=== PATIENT | female | born 1960 | race Caucasian/White ===

== ENCOUNTER → 2019-12-19 14:05 | Outpatient (BNVA) | payer OTHER, SELFPAY | PROVIDERS: Family Provider Family Medicine; PCP Family Medicine; Visit Provider Internal Medicine Rheumatology | DX: M06.4 Inflammatory polyarthropathy (principal); Z79.899 Other long term (current) drug therapy; M79.7 Fibromyalgia; M15.9 Polyosteoarthritis, unspecified; M47.26 Other spondylosis with radiculopathy, lumbar region | CPT/HCPCS: 36415; 80076; 82565; 84550; 85651; 86140 ==

== ENCOUNTER → 2019-12-19 14:18 | Outpatient (BNVA) | payer OTHER, SELFPAY | PROVIDERS: Family Provider Family Medicine; PCP Family Medicine; Visit Provider Internal Medicine Rheumatology | DX: M79.7 Fibromyalgia (principal); Z79.899 Other long term (current) drug therapy; M06.4 Inflammatory polyarthropathy | CPT/HCPCS: 85025 ==

== ENCOUNTER 2020-02-08 06:23 | Outpatient (CLI) | payer OTHER, SELFPAY ==
--- NOTE | 2020-02-08 06:25 | US_ITS ---
WS: [id number] ULTRASOUND ABDOMEN CLINICAL INFORMATION: ABD PAIN COMPARISON: None. FINDINGS: Liver Size: Enlarged Craniocaudal length: 18.2 cm. Echogenicity: Fatty infiltration Surface nodularity: None. Mass (size and location): None. Bile ducts Intrahepatic ducts: Normal. Common bile duct diameter: 0.5 cm. Gallbladder Normal. Gallstones: None. Gallbladder sludge: None. Gallbladder wall thickening: None. Pericholecystic fluid: None. Sonographic Cox sign: Absent. Pancreas Echogenic Right kidney: Normal. Hydronephrosis: None. Size: 10.9 cm x 4.1 cm x 4.0 cm Left kidney: Normal. Hydronephrosis: None. Size: 11.0 cm x 5.1 cm x 5.8 cm. Abdominal aorta and IVC Visualized portions are normal. Ascites: None. US/US abdomen complete* [id number] IMPRESSION: 1. Hepatomegaly with diffuse fatty infiltration. 2. Gallbladder is normal. 3. Normal common bile duct. 4. Echogenic pancreas likely due to fatty infiltration. This can also be seen with pancreatitis. Recommend correlation with pancreatic function studies. 5. No hydronephrosis in either kidney.
== END 2020-02-08 06:24 | disposition home or self-care (01) ==
LOC: RAD 06:24
PROVIDERS: PCP Family Medicine; Visit Provider Family Medicine
DX: R10.9 Unspecified abdominal pain (principal); K76.0 Fatty (change of) liver, not elsewhere classified
CPT/HCPCS: 76700

== ENCOUNTER → 2020-02-19 09:17 | Outpatient (BNVA) | payer OTHER, SELFPAY | PROVIDERS: PCP Family Medicine; Visit Provider Urology | DX: N39.46 Mixed incontinence (principal) | CPT/HCPCS: 81001 ==

== ENCOUNTER 2020-03-06 07:22 | Outpatient (CLI) | payer OTHER, SELFPAY ==
--- NOTE | 2020-03-06 07:35 | NM_ITS ---
WS: [id number] NM hepatobiliary w phar* [id number] REASON FOR EXAM: abdominal pain TECHNICAL: 7.8 mCi technetium 9 9 exam mebrofenin , ensure +8 ounces FINDINGS: After the injection of the mebrofenin the gallbladder visualizes at approximately 10 minute s. The patient was given ensure plus orally. Ejection fraction was normal 68% at 60 minutes. NM/NM hepatobiliary w phar* [id number] IMPRESSION: Normal appearance the gallbladder with normal ejection fraction.
== END 2020-03-06 07:23 | disposition home or self-care (01) ==
LOC: RAD 07:24
PROVIDERS: PCP Family Medicine; Visit Provider Family Medicine
DX: R10.9 Unspecified abdominal pain (principal)
CPT/HCPCS: 78227; A9537

== ENCOUNTER → 2020-03-25 09:09 | Outpatient (BNVA) | payer OTHER, SELFPAY | PROVIDERS: Family Provider Family Medicine; PCP Family Medicine; Visit Provider Internal Medicine Rheumatology | DX: Z79.899 Other long term (current) drug therapy (principal) | CPT/HCPCS: 36415; 80076; 82565; 84550; 85025; 85651; 86140 ==

== ENCOUNTER → 2020-04-01 10:57 | Outpatient (BNVA) | payer OTHER, SELFPAY | PROVIDERS: Family Provider Family Medicine; PCP Family Medicine; Visit Provider Internal Medicine Rheumatology | DX: M06.041 Rheumatoid arthritis without rheumatoid factor, right hand (principal); M06.042 Rheumatoid arthritis without rheumatoid factor, left hand; M76.61 Achilles tendinitis, right leg; M77.12 Lateral epicondylitis, left elbow; M77.02 Medial epicondylitis, left elbow; Z79.899 Other long term (current) drug therapy | CPT/HCPCS: 99214 ==

== ENCOUNTER 2020-04-07 12:48 | Outpatient (CLI) | payer OTHER, SELFPAY ==
--- NOTE | 2020-04-07 12:58 | XRR_ITS ---
PROCEDURE INFORMATION: Exam: XR Left Foot Complete Exam date and time: 04/07/2020 12:59 PM Age: 59 years old Clinical indication: Left; Patient HX: C/O bilat hand , foot, elbow pain x years; Additional info: Inflammatory arthritis TECHNIQUE: Imaging protocol: XR Left foot. Views: 3 or more views. COMPARISON: No relevant prior studies available. FINDINGS: Bones/joints: Mild great toe bunion deformity with metatarsus varus and hallux valgus. Mild great toe MTP primary osteoarthritis. Soft tissues: Ossification/calcification over the Achilles tendon insertion on the posterior calcaneus consistent with enthesopathy. XR/XR foot LT min 3V* [id number] IMPRESSION: 1. Mild great toe bunion deformity with metatarsus varus and hallux valgus. 2. Mild great toe MTP primary osteoarthritis.
--- NOTE | 2020-04-07 12:58 | XRR_ITS ---
PROCEDURE INFORMATION: Exam: XR Left Hand Exam date and time: 04/07/2020 12:59 PM Age: 59 years old Clinical indication: Left; Patient HX: C/O bilat hand pain x years; Additional info: Inflammatory arthritis TECHNIQUE: Imaging protocol: XR Left hand. Views: 3 or more views. COMPARISON: No relevant prior studies available. FINDINGS: Bones/joints: Normal. Soft tissues: Normal. XR/XR hand LT min 3V* [id number] IMPRESSION: No acute findings.
--- NOTE | 2020-04-07 12:58 | XRR_ITS ---
PROCEDURE INFORMATION: Exam: XR Right Hand Exam date and time: 04/07/2020 12:59 PM Age: 59 years old Clinical indication: Right; Patient HX: C/O bilat hand pain; Additional info: Inflammatory arthritis TECHNIQUE: Imaging protocol: XR Right hand. Views: 3 or more views. COMPARISON: No relevant prior studies available. 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 Soft tissues: Normal. 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
--- NOTE | 2020-04-07 12:58 | XRR_ITS ---
PROCEDURE INFORMATION: Exam: XR Left Elbow Exam date and time: 04/07/2020 12:59 PM Age: 59 years old Clinical indication: Left; Patient HX: C/O bilat elbow pain; Additional info: Inflammatory arthritis TECHNIQUE: Imaging protocol: XR Left elbow. Views: 1 or 2 views. COMPARISON: CR Elbow 2 views, LEFT [id number] 01/24/2018 4:20 PM FINDINGS: Bones/joints: Primary osteoarthritis in the medial elbow joint. Primary osteoarthritis in the anterior and posterior portions of the articulation between the ulna and humerus with osteophyte formation. Soft tissues: Normal. XR/XR elbow LT 2V [id number] IMPRESSION: 1. Primary osteoarthritis in the medial elbow joint. 2. Primary osteoarthritis in the anterior and posterior portions of the articulation between the ulna and humerus with osteophyte formation.
--- NOTE | 2020-04-07 12:58 | XRR_ITS ---
PROCEDURE INFORMATION: Exam: XR Right Elbow Exam date and time: 04/07/2020 12:59 PM Age: 59 years old Clinical indication: Right; Patient HX: C/O bilat elbow pain; Additional info: Inflammatory arthritis TECHNIQUE: Imaging protocol: XR Right elbow. Views: 1 or 2 views. COMPARISON: CR Elbow 2 views, RIGHT [id number] 01/24/2018 4:20 PM FINDINGS: Bones/joints: Primary osteoarthritis in the anterior and posterior portions of the articulation between the ulna and humerus. Soft tissues: Normal. XR/XR elbow RT 2V [id number] IMPRESSION: Primary osteoarthritis in the anterior and posterior portions of the articulation between the ulna and humerus.
--- NOTE | 2020-04-07 12:58 | XRR_ITS ---
PROCEDURE INFORMATION: Exam: XR Chest, 2 Views Exam date and time: 04/07/2020 12:59 PM Age: 59 years old Clinical indication: Other: Extremity pain; Patient HX: C/O bilat hand, foot, elbow pain x years; Additional info: Inflammatory arthritis TECHNIQUE: Imaging protocol: XR of the chest Views: 2 views. COMPARISON: No relevant prior studies available. FINDINGS: Lungs: Calcified right hilar nodes and/or mediastinal nodes and/or lung granulomas consistent with old granulomatous disease. Pleural space: Unremarkable. No pleural effusion. No pneumothorax. Heart/Mediastinum: Unremarkable. No cardiomegaly. Bones/joints: Levoscoliosis. Moderate thoracic spondylosis. [id number] right acromioclavicular arthropathy. XR/XR chest 2V* [id number] IMPRESSION: 1. Moderate thoracic spondylosis. 2. [id number] right acromioclavicular arthropathy.
--- NOTE | 2020-04-07 12:58 | XRR_ITS ---
PROCEDURE INFORMATION: Exam: XR Right Foot Complete Exam date and time: 04/07/2020 12:59 PM Age: 59 years old Clinical indication: Right; Patient HX: C/O bilat foot pain x years; Additional info: Inflammatory arthritis TECHNIQUE: Imaging protocol: XR Right foot. Views: 3 or more views. COMPARISON: No relevant prior studies available. FINDINGS: Bones/joints: Mild great toe bunion deformity with metatarsus varus and hallux valgus. Mild great toe MTP primary osteoarthritis. Soft tissues: Ossification/calcification over the Achilles tendon insertion on the posterior calcaneus consistent with enthesopathy. XR/XR foot RT min 3V* [id number] IMPRESSION: 1. Mild great toe bunion deformity with metatarsus varus and hallux valgus. 2. Mild great toe MTP primary osteoarthritis.
== END 2020-04-07 12:49 | disposition home or self-care (01) ==
PROVIDERS: Family Provider Family Medicine; PCP Family Medicine; Visit Provider Internal Medicine Rheumatology
DX: M47.814 Spondylosis without myelopathy or radiculopathy, thoracic region (principal); M19.022 Primary osteoarthritis, left elbow; M19.021 Primary osteoarthritis, right elbow; M21.611 Bunion of right foot; M21.171 Varus deformity, not elsewhere classified, right ankle; M20.12 Hallux valgus (acquired), left foot; M20.11 Hallux valgus (acquired), right foot; M21.612 Bunion of left foot; M19.072 Primary osteoarthritis, left ankle and foot; M19.071 Primary osteoarthritis, right ankle and foot; M19.041 Primary osteoarthritis, right hand
CPT/HCPCS: 71046; 73070; 73130; 73630

== ENCOUNTER 2020-04-17 07:22 | Day surgery (SDC) | payer OTHER, SELFPAY ==
[2020-04-16 10:24] VITALS: BMI 35.7
[2020-04-17 07:39] VITALS: BP 154/93; PULSE 103; RESP 18; TEMP 36.8; O2SAT 100
--- NOTE | 2020-04-17 07:47 | ANES.PREANE2 ---
Pre-Anesthetic Assessment Pre-Anesthetic Assessment: Height/Weight: Height 1.52 m Weight 83.007 kg Temp Pulse Resp BP Pulse Ox 98.2 F 103 H 18 154/93 100 04/17/20 07:39 04/17/20 07:39 04/17/20 07:39 04/17/20 07:39 04/17/20 07:39 Preop Diagnosis: abd pain Proposed Procedure: Operation Date: 04/17/20 08:30 Proposed Procedures p EGD(Not Applicable) - Rigo Morrison MD s Colonoscopy(Not Applicable) - Rigo Morrison MD Was Beta María taken within 24 hours: N/A Last intake: Intake Last Liquid Date 04/16/20 Last Liquid Time 21:00 Last Solid Date 04/15/20 Social: Social History: No alcohol and No tobacco Exam: Pre-Anes Outpt Exam: alert, oriented x 3, clear to auscultation bilaterally and regular rate & rhythm Airway: Submandibular: WNL Cervical ROM: WNL MP: 3 (small mouth) Dentition: Full History/ROS: No significant history except as noted Pulmonary: Pulmonary: Sleep apnea and SOB Comments: recent sinusitis (completed abx) CV/HEM: CV/HEM: HTN : : None reported Hepatic: Hepatic: None reported GI: GI: GERD Metabolic: Metabolic: Morbid obesity Musc/skel: Musc/skel: Fibromyalgia and RA (prednisone) Comments: gout Neuropsych: Neuropsych: Anxiety Anesthetic Plan: ASA status: 3 Anesthesia: Anesthesia Evaluation Risk of > 500 ml blood loss (7ml/kg in children): No PFSH Anesthesia PFSH: Medical History (Updated 04/01/20 @ 19:24 by Ben Gates MD) Achilles tendinitis Fibromyalgia Gout High risk medication use Hypertension Immunization counseling Inflammatory polyarthritis Lateral epicondylitis, left elbow Medial epicondylitis of left elbow Mixed stress and urge urinary incontinence Osteoarthritis Seronegative rheumatoid arthritis of both hands Surgical History H/O breast surgery H/O dilation and curettage History of carpal tunnel surgery Family History Other Heart attack Hypertension Rheumatoid arthritis Systemic lupus erythematosus, unspecified Denies family history of Diabetes Stroke Social History Smoking and tobacco status: never smoked Alcohol intake: never History of recent travel: No Data Anesthesia Cardiac Studies: No Data to Display
[2020-04-17] MEDS: sodium chloride 0.9% 1,000 ML 30 ML IV (08:03)
--- NOTE | 2020-04-17 08:31 | W.PM.OPSUD ---
Surgery/Procedure H&P Update DATE OF PROCEDURE: April 17, 2020 DATE H&P PERFORMED: 03/25/20 H&P UPDATE INFORMATION: No changes to prior documentation PREOP DIAGNOSIS: Family history of polyps, dysphagia, GERD, heartburn PLANNED PROCEDURE: Operation Date: 04/17/20 08:30 Proposed Procedures p EGD(Not Applicable) - Rigo Morrison MD s Colonoscopy(Not Applicable) - Rigo Morrison MD
[2020-04-17 09:14] VITALS: BP 107/53; PULSE 92; RESP 18; TEMP 37.2; O2SAT 100
[2020-04-18 05:42] LABS: H. Pylori / CLO Test Negative
== END 2020-04-17 09:33 | disposition home or self-care (01) ==
PROVIDERS: PCP Family Medicine; Visit Provider Surgery
PROC: 0DJ08ZZ Inspection of Upper Intestinal Tract, Via Natural or Artificial Opening Endoscopic (ICD-10-PCS; CPT 43235; principal; 2020-04-17 08:30)
PROC: 0DJD8ZZ Inspection of Lower Intestinal Tract, Via Natural or Artificial Opening Endoscopic (ICD-10-PCS; CPT 45378; 2020-04-17 08:30)
DX: Z12.11 Encounter for screening for malignant neoplasm of colon (principal); Z83.71 Family history of colonic polyps; R13.10 Dysphagia, unspecified; K21.9 Gastro-esophageal reflux disease without esophagitis; R12 Heartburn; K57.30 Diverticulosis of large intestine without perforation or abscess without bleeding; K64.8 Other hemorrhoids; K44.9 Diaphragmatic hernia without obstruction or gangrene; K29.70 Gastritis, unspecified, without bleeding; I10 Essential (primary) hypertension; E66.01 Morbid (severe) obesity due to excess calories; Z68.35 Body mass index [BMI] 35.0-35.9, adult; M79.7 Fibromyalgia; M19.90 Unspecified osteoarthritis, unspecified site; M06.042 Rheumatoid arthritis without rheumatoid factor, left hand; M06.041 Rheumatoid arthritis without rheumatoid factor, right hand; F41.9 Anxiety disorder, unspecified; Z79.52 Long term (current) use of systemic steroids
CPT/HCPCS: 12345; 43239; 45378; 87077; J2704; J7030

== ENCOUNTER → 2020-04-30 10:49 | Outpatient (BNVA) | payer OTHER, SELFPAY | PROVIDERS: PCP Family Medicine; Visit Provider Internal Medicine Rheumatology | DX: M06.4 Inflammatory polyarthropathy (principal); Z79.899 Other long term (current) drug therapy; Z11.1 Encounter for screening for respiratory tuberculosis | CPT/HCPCS: 36415; 80076; 82565; 85025; 85651; 86140; 86480; 86812 ==

== ENCOUNTER 2020-07-16 09:01 | Outpatient (CLI) | payer OTHER, SELFPAY ==
[2020-07-16 10:24] LABS: Basophils # 0.1 10^3/uL (0.0-0.1); Basophils % 0.6 %; Eosinophils # 0.2 10^3/uL (0.0-0.8); Hematocrit 39.1 % (37.0-47.0); Hemoglobin 12.5 g/dL (11.5-15.3); Lymphocytes % 25.4 %; Mean Corpuscular Hemoglobin 31.6 pg (28.0-34.0); Monocytes # 0.5 10^3/uL (0.2-0.9); Monocytes % 5.7 %; Neutrophils # 5.18 10^3/uL (1.8-7.7); Neutrophils % 65.8 %; Nucleated Red Blood Cells % 0 %; Platelet Count 298 10^3/cmm (130-400); Red Blood Count 3.95 10^6/uL (4.1-5.3); Red Cell Distribution Width 14.8 % (12.1-15.1); White Blood Count 7.9 10^3/uL (4.0-10.0)
[2020-07-16 10:44] LABS: Alanine Aminotransferase 17 U/L (0-33); Albumin Level 4.5 g/dL (3.5-5.2); Alkaline Phosphatase 101 IU/L (35-105); Aspartate Amino Transferase 16 U/L (0-32); C Reactive Protein 7.5 mg/L (0.0-4.9); Globulin 3.2 g/dL (1.3-4.6); Glomerular Filtration Rate 73.2 mL/min (90-130); Total Bilirubin 0.2 mg/dL (0.15-1.2); Total Protein 7.7 g/dL (6.6-8.7)
[2020-07-16 11:20] LABS: Erythrocyte Sedimentation Rate 44 mm/hr (0-15)
== END 2020-07-16 09:02 | disposition home or self-care (01) ==
LOC: LAB 09:03
PROVIDERS: PCP Family Medicine; Visit Provider Internal Medicine Rheumatology
DX: M06.041 Rheumatoid arthritis without rheumatoid factor, right hand (principal); M06.042 Rheumatoid arthritis without rheumatoid factor, left hand; M06.4 Inflammatory polyarthropathy; Z79.899 Other long term (current) drug therapy
CPT/HCPCS: 36415; 80076; 82565; 85025; 85651; 86140; 87086; 87635

== ENCOUNTER 2020-07-22 06:07 | Day surgery (SDC) | payer OTHER, SELFPAY ==
[2020-07-16 09:27] VITALS: BMI 35.7
--- NOTE | 2020-07-16 09:59 | ANES.PREANE2 ---
Pre-Anesthetic Assessment Pre-Anesthetic Assessment: Height/Weight: Height 1.52 m Weight 83.007 kg Preop Diagnosis: Family history of polyps, dysphagia, GERD, heartburn Proposed Procedure: Operation Date: 07/22/20 09:00 Proposed Procedures p Single Incision Suburethral Sling [id number] N39.46(Not Applicable) - Tc Penny MD s Cystoscopy(Not Applicable) - Tc Penny MD Familial anesthetic complications: None Social: Social History: No alcohol and No tobacco Exam: Pre-Anes Outpt Exam: alert, oriented x 3, clear to auscultation bilaterally and regular rate & rhythm Airway: Cervical ROM: WNL MP: 4 Dentition: Other (missing) Additional comments: large neck circumference and small mouth opening Pulmonary: Pulmonary: Sleep apnea (cpap) CV/HEM: CV/HEM: HTN GI: GI: GERD Metabolic: Metabolic: Morbid obesity Musc/skel: Musc/skel: RA (denies ligamentous laxity of neck) Comments: on methotrexate and prednisone - may require hydrocortisone as stress dose steroids Neuropsych: Neuropsych: Anxiety Anesthetic Plan: ASA status: 3 Anesthesia: General Risk of > 500 ml blood loss (7ml/kg in children): No PFSH Anesthesia PFSH: Medical History (Updated 06/30/20 @ 18:09 by Tc Penny MD) Achilles tendinitis Fibromyalgia Gout High risk medication use Hypertension Immunization counseling Inflammatory polyarthritis Lateral epicondylitis, left elbow Medial epicondylitis of left elbow Osteoarthritis Seronegative rheumatoid arthritis of both hands Surgical History (Updated 06/30/20 @ 17:44 by Tc Penny MD) H/O breast surgery (~12/2018) History of carpal tunnel surgery (11/15/13) Left. Performed by Dr. Diaz at [facility] [place] in [place], [place]. S/P bilateral breast reduction (~03/2018) Status post hysteroscopy (11/21/18) With D&C. DX: Postmenopausal bleeding. Performed by Dr. Penny at [facility] [place] in [place], [place]. Findings: First-degree uterine prolapse, first to second-degree cystocele. Family History (Updated 06/30/20 @ 17:48 by Tc Penny MD) Mother Hypertension CAD (coronary artery disease) Hyperlipidemia Breast cancer Uterine cancer Grandfather Diabetes Maternal Family/Other Diabetes Maternal aunt Family history of thyroid problem Maternal aunt Father Bone cancer Other Rheumatoid arthritis Systemic lupus erythematosus, unspecified Social History (Updated 06/30/20 @ 17:49 by Tc Penny MD) Smoking and tobacco status: never smoked Alcohol intake: never History of recent travel: No Data Anesthesia Cardiac Studies: No Data to Display
[2020-07-22] VITALS (8 sets, daily range): BP systolic 118–155; BP diastolic 68–86; PULSE 88–109; RESP 13–20; TEMP 36.1–37.4; O2SAT 92–100
[2020-07-22] MEDS: sodium chloride 0.9% 1,000 ML 30 ML IV (06:25)
[2020-07-22] MEDS: ketorolac 30 mg/mL INJ IVP (06:53)
[2020-07-22] MEDS: phenazopyridine 100 mg Tablet 200 MG PO (06:55)
[2020-07-22] MEDS: gabapentin 300 mg Capsule PO (06:55)
--- NOTE | 2020-07-22 06:55 | W.PM.OPSUD ---
Surgery/Procedure H&P Update DATE OF PROCEDURE: July 22, 2020 DATE H&P PERFORMED: 06/27/20 H&P UPDATE INFORMATION: I have reviewed H&P completed within last 30 days, I have examined patient prior to procedure, No changes to prior documentation and H&P is in [facility] EMR on date indicated PREOP DIAGNOSIS: Mixed urinary incontinence PLANNED PROCEDURE: Operation Date: 07/22/20 07:50 Proposed Procedures p Single Incision Suburethral Sling [id number] N39.46(Not Applicable) - Tc Penny MD s Cystoscopy(Not Applicable) - Tc Penny MD
[2020-07-22] MEDS: vasopressin 20 unit/mL INJ 4 UNIT INJECTION (09:07)
--- NOTE | 2020-07-22 09:07 | P.OP_ITS ---
Operative Report Date of procedure: July 22, 2020 Pre-op Diagnosis: Mixed urinary incontinence Post-op Diagnosis: Mixed urinary incontinence Procedure Done: Single incision suburethral sling, Cystoscopy Specimens removed/disposition: None Surgeon: Tc Penny Food Service Helper: None Anesthesia: General Estimated blood loss (mL): 20 IV fluids (mL): 800 Complications: None Findings: Small urethral orifice. Second-degree uterine prolapse with second- degree cystocele under anesthesia. Normal-appearing bladder with no masses noted. Brief History: Patient is a 59-year-old 2, para 2, postmenopausal female. She presented to the office with a several year history of leaking urine. She has had a mixture of stress and urgency incontinence. Originally urgency issues were more of a problem. She has been treated with oxybutynin for this. However, the stress component has now become more significant and she is wanting to proceed with surgical treatment for this. On exam, she had been found to have a urethrocele present. In the office, she had a first-degree uterine prolapse with a first-degree cystocele noted. As a result, single incision suburethral sling was discussed with her and she is presenting for that at this time. Procedure: Patient was taken to the operating room where general anesthesia was obtained. She was prepped and draped in usual sterile fashion dorsal supine position with legs in Vamsi style stirrups. Sequential compression boots have been placed prior to starting the case. Jimenez catheter was inserted and exam under anesthesia was performed. She was noted to have a second-degree uterine prolapse with second-degree cystocele under anesthesia. Jimenez catheter was attempted to be placed, but patient was noted to have a very small urethral orifice. As a result, the urethra was dilated to a size 18 Hanks dilator. The 18 Irish Jimenez catheter was then able to be inserted without difficulty. The suburethral region was injected with dilute Pitressin solution. A midline incision was made with the knife parallel to the urethra. The edges were grasped with Allis clamps and the skin bluntly dissected from the periurethral tissue out towards the pubic rami bilaterally. Using a Solyx single incision suburethral sling, the sling was placed at the mid urethral level and passed through the periurethral fascia at a 45 degree angle to the urethra and brought behind the pubic rami. This was repeated on the contralateral side in a similar fashion, bringing the sling to just pressed against the urethra. Catheter was removed and cystoscopy was performed. The bladder appeared normal with no masses noted. Both ureters were noted to be effluxing urine well. The sling was not identified within the bladder or urethra. Bladder was then drained. The vaginal mucosa was reapproximated using 3-0 Vicryl suture in a running locking fashion. Vagina was then packed with 1 inch Nu Gauze. Cystoscope was reinserted into the bladder and the bladder filled with approximately 100 mL of crystalloid solution. The cystoscope was removed. Patient tolerated procedure well. Sponge needle and estimate counts were correct. Drains: None Postoperative Status: Patient was transferred to recovery room in satisfactory condition. Disposition: Patient to be discharged home after voiding trials. If she does not adequately empty her bladder, she will be sent home with either a Jimenez catheter or self catheterizing. Postoperative Appointment: Patient to follow-up in my office on 08/07/2020 Discharge medications: 1. Tramadol 50 mg, 1 to 2 tablets every 6 hours as needed for pain, #15, 0 refills 2. Pyridium 200 mg, 1 tablet 3 times a day for 3 days. She is to resume her usual home medications.
--- NOTE | 2020-07-22 09:27 | SUR.PHASEI ---
PT ON RA TRIAL, VSS IV PATENT ABD SOFT.PT AWAKES AND VERBALIZED APPROP QUICKLY BACK TO SLEEP
--- NOTE | 2020-07-22 10:48 | PC.NURSE ---
pulled gauze from vagina at 10:30. Pt voided 300cc of bloode
--- NOTE | 2020-07-22 10:52 | PC.NURSE ---
pulled gauze at 10:30. Pt voided 300ml of bloody orange urine. Bladder scanned with 47ml remaining. Dr. Mondragon called and was told she is ok to go home.
--- NOTE | 2020-07-22 11:05 | ANE.PACU2 ---
Inpatient post-anesthesia follow up: Airway intact: Yes Vital signs: Temperature 98.7 F Pulse Rate 88 Respiratory Rate 18 Blood Pressure 121/70 Pulse Oximetry 96 Oxygen Delivery Me thod Room Air Oxygen Flow Rate 8 Fraction of Inspir ed Oxygen Hydration adequate: Yes Nausea and vomiting: No Pain level: 2 Mental status: Baseline
== END 2020-07-22 11:06 | disposition home or self-care (01) ==
PROVIDERS: PCP Family Medicine; Visit Provider Obstetrics & Gynecology
PROC: (CPT 57288; principal; 2020-07-22 07:50)
PROC: 0TJB8ZZ Inspection of Bladder, Via Natural or Artificial Opening Endoscopic (ICD-10-PCS; CPT 52000; 2020-07-22 07:50)
DX: N39.46 Mixed incontinence (principal); G47.30 Sleep apnea, unspecified; I10 Essential (primary) hypertension; K21.9 Gastro-esophageal reflux disease without esophagitis; E66.01 Morbid (severe) obesity due to excess calories; Z68.35 Body mass index [BMI] 35.0-35.9, adult; M06.9 Rheumatoid arthritis, unspecified; F41.9 Anxiety disorder, unspecified; M79.7 Fibromyalgia; M19.90 Unspecified osteoarthritis, unspecified site
CPT/HCPCS: 57288; 12345; 96365; 96374; C1771; J0131; J0690; J1100; J1885; J2250; J2405; J3010; J3490; J7030

== ENCOUNTER → 2020-08-07 09:39 | Outpatient (BNVA) | payer OTHER, SELFPAY | PROVIDERS: PCP Family Medicine; Visit Provider Obstetrics & Gynecology | DX: R30.0 Dysuria (principal) | CPT/HCPCS: 87086 ==

== ENCOUNTER 2020-09-04 14:59 | Outpatient (RCR) | payer OTHER, SELFPAY | END 2020-09-18 23:59 | disposition home or self-care (01) | LOC: SPT 14:59 | PROVIDERS: PCP Family Medicine; Referring Provider Family Medicine; Visit Provider Family Medicine | DX: M54.89 Other dorsalgia (principal); G89.29 Other chronic pain | CPT/HCPCS: 97110; 97161 ==

== ENCOUNTER 2020-09-19 06:00 | Outpatient (RCR) | payer OTHER, SELFPAY | END 2020-10-14 09:03 | disposition home or self-care (01) | LOC: SPT 06:00 | PROVIDERS: PCP Family Medicine; Referring Provider Family Medicine; Visit Provider Family Medicine | DX: M54.89 Other dorsalgia (principal); G89.29 Other chronic pain; M54.5 Low back pain | CPT/HCPCS: 97110; 97530 ==

== ENCOUNTER → 2020-09-24 15:01 | Outpatient (BNVA) | payer OTHER, SELFPAY | PROVIDERS: PCP Family Medicine; Visit Provider Internal Medicine Rheumatology | DX: M06.041 Rheumatoid arthritis without rheumatoid factor, right hand (principal); M06.042 Rheumatoid arthritis without rheumatoid factor, left hand; M79.7 Fibromyalgia; M77.02 Medial epicondylitis, left elbow; M77.12 Lateral epicondylitis, left elbow; M15.9 Polyosteoarthritis, unspecified; M47.26 Other spondylosis with radiculopathy, lumbar region; G62.9 Polyneuropathy, unspecified; M76.61 Achilles tendinitis, right leg; Z79.899 Other long term (current) drug therapy | CPT/HCPCS: 99214 ==

== ENCOUNTER 2020-10-08 09:08 | Outpatient (CLI) | payer OTHER, SELFPAY ==
--- NOTE | 2020-10-08 09:30 | MM_ITS ---
WS: [id number] BILATERAL DIGITAL SCREENING MAMMOGRAPHY WITH CAD CLINICAL INFORMATION: SCREENING HISTORY: Screening mammogram. No current complaints. COMPARISON: June 11, 2019 TECHNIQUE: Bilateral CC and MLO views. FINDINGS: The breasts are composed of heterogeneous fibroglandular density tissue, which can limit the detectio n of small underlying mass lesions. No suspicious mass, asymmetry, calcifications, or architectural d istortion. No evidence of malignancy. Stable punctate calcifications. MM/[place] [id number] IMPRESSION: BI-RADS: 2-Benign FOLLOW UP: 1 Year Follow-up Recommend return to annual screening mammography.
== END 2020-10-08 09:09 | disposition home or self-care (01) ==
LOC: RADSHAW 09:10
PROVIDERS: PCP Family Medicine; Visit Provider Family Medicine
DX: Z12.31 Encounter for screening mammogram for malignant neoplasm of breast (principal)
CPT/HCPCS: 77067

== ENCOUNTER 2020-10-30 15:27 | Outpatient (CLI) | payer OTHER, SELFPAY ==
[2020-10-30 16:01] LABS: Basophils # 0.1 10^3/uL (0.0-0.1); Basophils % 0.6 %; Eosinophils # 0.1 10^3/uL (0.0-0.8); Eosinophils % 1.6 %; Hematocrit 38.1 % (37.0-47.0); Hemoglobin 12.3 g/dL (11.5-15.3); Lymphocytes # 2.3 10^3/uL (0.8-4.8); Lymphocytes % 29.5 %; Mean Corpuscular HGB Conc 32.3 g/dL (30.0-36.0); Mean Corpuscular Hemoglobin 31.8 pg (28.0-34.0); Mean Corpuscular Volume 98.4 fL (81-99); Mean Platelet Volume 11.2 fL (7.4-10.4); Monocytes # 0.4 10^3/uL (0.2-0.9); Monocytes % 5.4 %; Neutrophils # 4.94 10^3/uL (1.8-7.7); Neutrophils % 62.5 %; Nucleated Red Blood Cells % 0 %; Platelet Count 342 10^3/cmm (130-400); Red Blood Count 3.87 10^6/uL (4.1-5.3); Red Cell Distribution Width 15.2 % (12.1-15.1); White Blood Count 7.9 10^3/uL (4.0-10.0)
[2020-10-30 16:29] LABS: Alanine Aminotransferase 19 U/L (0-33); Albumin Level 4.2 g/dL (3.5-5.2); Alkaline Phosphatase 101 IU/L (35-105); Aspartate Amino Transferase 17 U/L (0-32); C Reactive Protein 4.5 mg/L (0.0-4.9); Globulin 3.5 g/dL (1.3-4.6); Glomerular Filtration Rate 73.2 mL/min (90-130); Total Bilirubin 0.2 mg/dL (0.15-1.2); Total Protein 7.7 g/dL (6.6-8.7)
[2020-10-30 17:04] LABS: Erythrocyte Sedimentation Rate 46 mm/hr (0-15)
[2020-11-01 12:18] LABS: Quantiferon Mitogen 8.42 IU/mL; Quantiferon Nil 0.02 IU/mL; Quantiferon TB Gold NEGATIVE (NEGATIVE)
[2020-11-01 19:52] LABS: HLA-B27 POSITIVE (NEGATIVE)
== END 2020-10-30 15:28 | disposition home or self-care (01) ==
PROVIDERS: PCP Family Medicine; Visit Provider Internal Medicine Rheumatology
DX: M06.041 Rheumatoid arthritis without rheumatoid factor, right hand (principal); M06.042 Rheumatoid arthritis without rheumatoid factor, left hand; Z79.899 Other long term (current) drug therapy
CPT/HCPCS: 36415; 80076; 82565; 85025; 85651; 86140; 86480; 86812

== ENCOUNTER → 2021-01-29 08:31 | Outpatient (BNVA) | payer OTHER, SELFPAY | PROVIDERS: PCP Family Medicine; Visit Provider Internal Medicine Rheumatology | DX: M06.041 Rheumatoid arthritis without rheumatoid factor, right hand (principal); M06.042 Rheumatoid arthritis without rheumatoid factor, left hand; M06.4 Inflammatory polyarthropathy; Z71.89 Other specified counseling; Z79.899 Other long term (current) drug therapy | CPT/HCPCS: 36415; 80076; 82565; 85025; 86140 ==

== ENCOUNTER → 2021-02-05 08:35 | Outpatient (BNVA) | payer OTHER, SELFPAY | PROVIDERS: PCP Family Medicine; Visit Provider Internal Medicine Rheumatology | DX: M06.041 Rheumatoid arthritis without rheumatoid factor, right hand (principal); M06.042 Rheumatoid arthritis without rheumatoid factor, left hand; Z79.899 Other long term (current) drug therapy; M79.7 Fibromyalgia; M75.50 Bursitis of unspecified shoulder; M15.9 Polyosteoarthritis, unspecified | CPT/HCPCS: 99214 ==

== ENCOUNTER → 2021-02-09 14:44 | Outpatient (BNVA) | payer OTHER, SELFPAY | PROVIDERS: PCP Family Medicine; Visit Provider Internal Medicine Rheumatology | DX: M75.51 Bursitis of right shoulder (principal); M06.041 Rheumatoid arthritis without rheumatoid factor, right hand; M06.042 Rheumatoid arthritis without rheumatoid factor, left hand | CPT/HCPCS: 20610; J1030 ==

== ENCOUNTER → 2021-02-18 09:51 | Outpatient (BNVA) | payer OTHER, SELFPAY | PROVIDERS: PCP Family Medicine; Visit Provider Nurse Practitioner Family | DX: N39.46 Mixed incontinence (principal); R30.0 Dysuria; R39.14 Feeling of incomplete bladder emptying | CPT/HCPCS: 81003; 87086 ==

== ENCOUNTER → 2021-02-27 00:01 | Outpatient (BNVA) | payer OTHER, SELFPAY | PROVIDERS: PCP Family Medicine; Visit Provider Nurse Practitioner Family | DX: R30.0 Dysuria (principal); R39.14 Feeling of incomplete bladder emptying; N39.46 Mixed incontinence | CPT/HCPCS: 81003 ==

== ENCOUNTER → 2021-05-13 09:05 | Outpatient (BNVA) | payer OTHER, SELFPAY | PROVIDERS: PCP Family Medicine; Visit Provider Internal Medicine Rheumatology | DX: M06.041 Rheumatoid arthritis without rheumatoid factor, right hand (principal); M06.042 Rheumatoid arthritis without rheumatoid factor, left hand; Z79.899 Other long term (current) drug therapy | CPT/HCPCS: 36415; 80076; 82565; 85025; 86140 ==

== ENCOUNTER → 2021-05-20 13:43 | Outpatient (BNVA) | payer OTHER, SELFPAY | PROVIDERS: PCP Family Medicine; Visit Provider Internal Medicine Rheumatology | DX: M06.041 Rheumatoid arthritis without rheumatoid factor, right hand (principal); M06.042 Rheumatoid arthritis without rheumatoid factor, left hand; Z79.899 Other long term (current) drug therapy; M75.50 Bursitis of unspecified shoulder; M79.7 Fibromyalgia; G47.33 Obstructive sleep apnea (adult) (pediatric); G62.9 Polyneuropathy, unspecified; Z71.89 Other specified counseling | CPT/HCPCS: 99214 ==

== ENCOUNTER 2021-05-22 10:29 | Outpatient (CLI) | payer OTHER, SELFPAY ==
[2021-05-22 10:56] LABS: Basophils # 0.1 10^3/uL (0.0-0.1); Basophils % 0.8 %; Eosinophils # 0.2 10^3/uL (0.0-0.8); Eosinophils % 2.4 %; Hematocrit 37.6 % (37.0-47.0); Hemoglobin 11.2 g/dL (11.5-15.3); Lymphocytes # 1.7 10^3/uL (0.8-4.8); Lymphocytes % 27.5 %; Mean Corpuscular HGB Conc 29.8 g/dL (30.0-36.0); Mean Corpuscular Hemoglobin 31.7 pg (28.0-34.0); Mean Corpuscular Volume 106.5 fl (81-99); Mean Platelet Volume 11.1 fL (7.4-10.4); Monocytes # 0.3 10^3/uL (0.2-0.9); Monocytes % 4.5 %; Neutrophils # 4.04 10^3/uL (1.8-7.7); Neutrophils % 64.6 %; Nucleated Red Blood Cells % 0 %; Platelet Count 306 10^3/cmm (130-400); Red Blood Count 3.53 10^6/uL (4.1-5.3); Red Cell Distribution Width 15.9 % (12.1-15.1); White Blood Count 6.3 10^3/uL (4.0-10.0)
[2021-05-22 11:56] LABS: Thyroid Stimulating Hormone 1.67 uIU/mL (0.27-4.20)
== END 2021-05-22 10:30 | disposition home or self-care (01) ==
PROVIDERS: PCP Family Medicine; Visit Provider Internal Medicine Rheumatology
DX: M06.041 Rheumatoid arthritis without rheumatoid factor, right hand (principal); M06.042 Rheumatoid arthritis without rheumatoid factor, left hand; Z79.899 Other long term (current) drug therapy
CPT/HCPCS: 84439; 84443; 85025

== ENCOUNTER 2021-08-21 10:03 | Outpatient (CLI) | payer OTHER, SELFPAY ==
[2021-08-21 11:11] LABS: Basophils % 0.5 %; Eosinophils # 0.1 10^3/uL (0.0-0.8); Eosinophils % 0.6 %; Hemoglobin 12.3 g/dL (11.5-15.3); Lymphocytes # 1.2 10^3/uL (0.8-4.8); Lymphocytes % 15.6 %; Mean Corpuscular HGB Conc 30.8 g/dL (30.0-36.0); Mean Corpuscular Hemoglobin 32.5 pg (28.0-34.0); Mean Corpuscular Volume 105.8 fl (81-99); Mean Platelet Volume 11.5 fL (7.4-10.4); Monocytes # 0.2 10^3/uL (0.2-0.9); Monocytes % 2.2 %; Neutrophils # 6.34 10^3/uL (1.8-7.7); Neutrophils % 80.5 %; Nucleated Red Blood Cells % 0 %; Platelet Count 279 10^3/cmm (130-400); Red Blood Count 3.78 10^6/uL (4.1-5.3); Red Cell Distribution Width 14.7 % (12.1-15.1); White Blood Count 7.9 10^3/uL (4.0-10.0)
[2021-08-21 11:25] LABS: Albumin Level 3.8 g/dL (3.5-5.2); Alkaline Phosphatase 92 IU/L (35-105); C Reactive Protein 9.6 mg/L (0.0-4.9); Globulin 3.3 g/dL (1.3-4.6); Glomerular Filtration Rate 72.9 mL/min (90-130); Total Bilirubin 0.2 mg/dL (0.15-1.2); Total Protein 7.1 g/dL (6.6-8.7)
[2021-08-21 11:31] LABS: Alanine Aminotransferase 24 U/L (0-33); Aspartate Amino Transferase 26 U/L (0-32)
== END 2021-08-21 10:04 | disposition home or self-care (01) ==
PROVIDERS: PCP Family Medicine; Visit Provider Internal Medicine Rheumatology
DX: M06.041 Rheumatoid arthritis without rheumatoid factor, right hand (principal); M06.042 Rheumatoid arthritis without rheumatoid factor, left hand; Z79.899 Other long term (current) drug therapy
CPT/HCPCS: 80076; 82565; 85025; 86140

== ENCOUNTER 2021-09-14 10:51 | Outpatient (CLI) | payer OTHER, SELFPAY ==
--- NOTE | 2021-09-14 11:01 | XR_ITS ---
WS: [id number] Thoracic spine, 3 views, 09/14/2021 Clinical Data: M54.9 - Dorsalgia, unspecified Comparison: None. Findings: No compression fractures are seen. The disc heights are normal. There is a dextroscoliosis of the lower thoracic spine. There is osteoarthritis of the thoracic verte bral bodies from T6 through T12. XR/XR thoracic spine 3V* [id number] Impression: Osteoarthritis and dextroscoliosis of the thoracic spine.
== END 2021-09-14 10:52 | disposition home or self-care (01) ==
PROVIDERS: PCP Family Medicine; Visit Provider Internal Medicine Rheumatology
DX: M47.814 Spondylosis without myelopathy or radiculopathy, thoracic region (principal); M41.84 Other forms of scoliosis, thoracic region
CPT/HCPCS: 72072

== ENCOUNTER 2021-10-02 14:43 | Outpatient (CLI) | payer OTHER, SELFPAY ==
--- NOTE | 2021-10-02 14:48 | XR_ITS ---
WS: [id number] XR pelvis 1-2V* [id number] REASON FOR EXAM: M53.3 - Sacrococcygeal disorders, not elsewhere classified FINDINGS: No fracture or focal bone lesion. Sacroiliac joints are normal. The sacrum and visualized coccyx are normal. Symmetric moderate osteoarthritis in both hip joints with acetabular subchondral sclerosis and osteop hytosis. Mild osteophytosis of the femoral heads. Sclerosis and spurring at the pubic symphysis. XR/XR pelvis 1-2V* [id number] IMPRESSION: No acute abnormality. Osteoarthritis both hips. Osteoarthritis of the pubic symphysis.
== END 2021-10-02 14:44 | disposition home or self-care (01) ==
LOC: RAD 14:46
PROVIDERS: PCP Family Medicine; Visit Provider Internal Medicine Rheumatology
DX: M53.3 Sacrococcygeal disorders, not elsewhere classified (principal)
CPT/HCPCS: 72170

== ENCOUNTER 2021-10-08 09:16 | Outpatient (CLI) | payer OTHER, SELFPAY ==
--- NOTE | 2021-10-08 09:24 | MM_ITS ---
WS: [id number] BILATERAL DIGITAL SCREENING MAMMOGRAPHY WITH CAD CLINICAL INFORMATION: SCREENING HISTORY: Screening mammogram. No current complaints. COMPARISON: October 08, 2020 TECHNIQUE: Bilateral CC and MLO views. FINDINGS: Evidence of bilateral breast reduction. The breasts are composed of heterogeneous fibroglandular density tissue, which can limit the detectio n of small underlying mass lesions. Diffuse scattered punctate calcifications left greater than right breast similar in appearance. Stable asymmetry inferior left breast with punctate calcifications is unchanged. No suspicious mass, asymmetry, calcifications, or architectural distortion. No evidence of malignancy. MM/[place] [id number] IMPRESSION: BI-RADS: 2-Benign FOLLOW UP: 1 Year Follow-up Recommend return to annual screening mammography.
== END 2021-10-08 09:17 | disposition home or self-care (01) ==
LOC: RADSHAW 09:20
PROVIDERS: PCP Family Medicine; Visit Provider Family Medicine
DX: Z12.31 Encounter for screening mammogram for malignant neoplasm of breast (principal); M47.892 Other spondylosis, cervical region; M47.895 Other spondylosis, thoracolumbar region; M54.50 Low back pain, unspecified; M54.2 Cervicalgia
CPT/HCPCS: 72050; 72110; 77067

== ENCOUNTER 2021-12-10 14:16 | Outpatient (CLI) | payer OTHER, SELFPAY ==
[2021-12-10 15:16] LABS: Basophils # 0.1 10^3/uL (0.0-0.1); Basophils % 0.9 %; Eosinophils # 0.1 10^3/uL (0.0-0.8); Eosinophils % 0.8 %; Hematocrit 40.3 % (37.0-47.0); Hemoglobin 12.8 g/dL (11.5-15.3); Lymphocytes # 2.2 10^3/uL (0.8-4.8); Mean Corpuscular HGB Conc 31.8 g/dL (30.0-36.0); Mean Corpuscular Volume 100.8 fl (81-99); Mean Platelet Volume 12.1 fL (7.4-10.4); Monocytes # 0.4 10^3/uL (0.2-0.9); Monocytes % 5.7 %; Neutrophils # 4.78 10^3/uL (1.8-7.7); Neutrophils % 62.8 %; Nucleated Red Blood Cells % 0 %; Platelet Count 273 10^3/cmm (130-400); Red Cell Distribution Width 13.3 % (12.1-15.1); White Blood Count 7.6 10^3/uL (4.0-10.0)
[2021-12-10 15:41] LABS: Alanine Aminotransferase 19 U/L (0-33); Albumin Level 4.4 g/dL (3.5-5.2); Alkaline Phosphatase 85 IU/L (35-105); Aspartate Amino Transferase 15 U/L (0-32); Blood Urea Nitrogen 10 mg/dL (8-23); Calcium 10.3 mg/dL (8.5-10.5); Carbon Dioxide 25 mmol/L (22-29); Chloride 96 mmol/L (98-107); Globulin 3.3 g/dL (1.3-4.6); Glomerular Filtration Rate 72.9 mL/min (90-130); Glucose 98 mg/dL (65-115); NT Pro B Type Natriuretic Pept 167 pg/mL (0-125); Osmolality Calculated 279 mOsm/kg (285-295); Sodium 135 mmol/L (136-145); Thyroid Stimulating Hormone 1.71 uIU/mL (0.27-4.20); Total Bilirubin 0.3 mg/dL (0.15-1.2); Total Protein 7.7 g/dL (6.6-8.7)
[2021-12-10 15:56] LABS: Anion Gap 17.9 (5-19); Potassium 3.9 mmol/L (3.5-5.1)
== END 2021-12-10 14:17 | disposition home or self-care (01) ==
PROVIDERS: PCP Family Medicine; Visit Provider Family Medicine
DX: R63.5 Abnormal weight gain (principal); R60.0 Localized edema
CPT/HCPCS: 36415; 80053; 83880; 84443; 85025

== ENCOUNTER 2022-02-19 09:10 | Outpatient (CLI) | payer OTHER, SELFPAY ==
--- NOTE | 2022-02-19 09:16 | US_ITS ---
WS: [id number] ULTRASOUND PELVIS TECHNIQUE: Transabdominal and transvaginal. ULTRASOUND PELVIS TECHNIQUE: Transabdominal. CLINICAL INFORMATION: POSTMENOPAUSAL BLEEDING LMP: : No. COMPARISON: None. FINDINGS: Uterus Orientation: Retroverted Size: 6.4 cm x 4.6 cm x 4.0 cm. Masses: Intramural anterior fundal fibroid measuring 1.5 x 1.0 0.7 cm Cervix: 2.6 cm. Endometrium: Abnormal thickening Endometrium thickness: 7 mm. Adnexa: Normal. Right ovary size: 1.9 cm x 1.3 cm x 1.3 cm. Right ovary volume: 1.7 ccm3. Left ovary size: 2.5 cm x 1.9 cm x 2.0 cm. Left ovary volume: 4.9 ccm3 Free fluid: None. Other findings: None. US/US pelvic with transvaginal IMPRESSION: 1. Retroverted uterus. 2. Intramural anterior fundal fibroid measuring 1.5 x 1.0 x 0.7 cm 3. Thickened endometrium measuring 7.1 mm abnormal in a postmenopausal patient . Recommend further evaluation with hysteroscopy to evaluate for neoplasia vers us hyperplasia. 4. Cervix measures 2.6 cm. 5. Normal ovaries bilaterally.
== END 2022-02-19 09:11 | disposition home or self-care (01) ==
PROVIDERS: PCP Family Medicine; Visit Provider Family Medicine
DX: N95.0 Postmenopausal bleeding (principal)
CPT/HCPCS: 76830; 76856

== ENCOUNTER 2022-03-05 06:24 | Outpatient (CLI) | payer OTHER, SELFPAY ==
--- NOTE | 2022-03-05 07:15 | MR_ITS ---
WS: [id number] MRI CERVICAL SPINE noncontrast. HISTORY: M54.9 - Dorsalgia, unspecified COMPARISON: 2013 Technique: Multiplanar, multisequence noncontrast imaging of the cervical spine. Mild RIGHT curvature cervical spine and scoliosis. LEFT curvature upper thoracic spine. Signal within the cervical cord is normal. Visualized posterior fossa is unremarkable. Craniocervical junction, C1 and C2 relationship, odontoid process and soft tissues are normal. C2-C3: Mild osteophytic ridging with no stenosis. C3-C4: Mild osteophytic ridging resulting in mild LEFT foraminal stenosis. C4-C5: Mild osteophytic ridging and facet arthritis. No stenosis. C5-C6: Mild osteophytic ridging with a shallow LEFT paracentral disc protrusion and facet arthritis. No cord contact. Effacement of CSF. C6-C7: Normal. C7-T1: Normal. Quality of this examination is compromised by body habitus. MR/MR cervical spin wo con* [id number] IMPRESSION: 1. No high-grade central stenosis or large disc protrusions. 2. Cervical curvature and scoliosis. 3. Small LEFT paracentral disc protrusion at C5-C6 effaces the CSF this does n ot contact the cord. 4. Multilevel mild osteophytosis with no high-grade foraminal stenosis. Mild p rogression of degenerative disc disease and spondylitic changes since 2013.
--- NOTE | 2022-03-05 08:00 | MR_ITS ---
WS: [id number] MRI LUMBAR SPINE NONCONTRAST HISTORY: Chronic low back pain radiating down both legs. COMPARISON: 02/15/2018 TECHNIQUE: Sagittal and axial multisequence imaging is submitted. Thoracolumbar scoliosis. Moderate RIGHT curvature the lumbar spine. Increase in the thoracic kyphosis . Quality of this examination is limited by body habitus. No marrow edema is identified. Mild disc desiccation throughout. No fractures. Disc desiccation. Conus terminates normally at L1. L1-L2: Diffuse annular disc bulging. Suspect there may be a small LEFT foraminal disc protrusion but there is motion obscuring detail. Mild LEFT foraminal stenosis. L2-L3: Diffuse annular disc bulging with moderate ligamentum flavum and facet arthritis. Small LEFT f oraminal disc protrusion. L3-L4: Mild annular disc bulge. Small RIGHT paracentral disc protrusion contacts the traversing L4 ne rve root. Mild ligamentum flavum and facet arthritis. L4-L5: Mild annular disc bulge with a tiny central disc protrusion. Moderate ligamentum flavum and fa cet arthritis. No high-grade stenosis. L5-S1: Diffuse annular disc bulging. Mild ligamentum flavum and facet arthritis. The small LEFT juliet inal disc protrusion identified on the prior study is still present but decreased in size. Minimal co ntact on the LEFT L5 nerve root. Paravertebral soft tissues are negative. MR/MR lumbar spine wo con* [id number] IMPRESSION: 1. Quality of examination is compromised by body habitus and motion. 2. Moderate thoracolumbar scoliosis. 3. No acute fracture or marrow edema. 4. Small LEFT foraminal disc protrusion with minimal contact on the LEFT L5 ne rve root. Mild improvement since the prior MRI. 5. Very small LEFT foraminal disc protrusions at L1-2 and L2-3. 6. Small LEFT paracentral disc protrusion contacts the traversing L4 nerve jimi t. 7. Multilevel facet and ligamentum flavum hypertrophy.
== END 2022-03-05 06:25 | disposition home or self-care (01) ==
LOC: RAD 06:26
PROVIDERS: PCP Family Medicine; Visit Provider Internal Medicine Rheumatology
DX: M54.50 Low back pain, unspecified (principal); M50.222 Other cervical disc displacement at C5-C6 level
CPT/HCPCS: 72141; 72148

== ENCOUNTER → 2022-05-03 11:17 | Outpatient (BNVA) | payer OTHER, SELFPAY | PROVIDERS: PCP Family Medicine; Visit Provider Internal Medicine Rheumatology | DX: Z79.899 Other long term (current) drug therapy (principal); M06.4 Inflammatory polyarthropathy; M46.90 Unspecified inflammatory spondylopathy, site unspecified; Z15.89 Genetic susceptibility to other disease; M19.90 Unspecified osteoarthritis, unspecified site; M51.16 Intervertebral disc disorders with radiculopathy, lumbar region | CPT/HCPCS: 80076; 82565; 85025; 86140 ==

== ENCOUNTER → 2022-05-10 14:53 | Outpatient (BNVA) | payer OTHER, SELFPAY | PROVIDERS: PCP Family Medicine; Visit Provider Obstetrics & Gynecology | DX: N95.0 Postmenopausal bleeding (principal); M06.4 Inflammatory polyarthropathy; Z79.899 Other long term (current) drug therapy | CPT/HCPCS: 80076; 82565; 85025; 86140; 88305 ==

== ENCOUNTER 2022-06-16 10:28 | Observation (INO) | payer OTHER, SELFPAY ==
[2022-06-11 12:21] VITALS: BMI 37.3
--- NOTE | 2022-06-11 12:43 | P.ANESASSM_ITS ---
Pre-Anesthetic Assessment Height/Weight: Height 1.52 m Weight 86.636 kg Preop Diagnosis: Mixed urinary incontinence Operation Date: 06/16/22 08:30 Proposed Procedures p Total vaginal hysterectomy, bilateral salpingo-oophorectomy 25104,N95.0(Not Applicable) - Dionicio Colindres MD s Salpingo-Oophorectomy (Vaginal)(Not Applicable) - Dionicio Colindres MD Familial anesthetic complications: None Social No alcohol and No tobacco Exam alert, oriented x 3, clear to auscultation bilaterally and regular rate & rhythm Airway Mallampati: Class IV Dentition: full Pulmonary Sleep Apnea CV/HEM Hypertension None reported Hepatic None reported GI Gastroesophageal Reflux Disease [facility] [place] Fibromyalgia and Rheumatoid Arthritis Anesthetic Plan ASA status: 3 Anesthesia: General Risk of > 500 ml blood loss (7ml/kg in children): No Medications/Allergies Home Medications Medication Instructions Recorded Confirmed Last Taken Type allopurinol 300 mg tablet 300 mg PO DAILY 12/18/19 06/11/22 07/21/20 History alprazolam 0.5 mg tablet 0.5 mg PO BEDTIME 12/18/19 06/11/22 07/21/20 History cholecalciferol (vitamin D3) 50 2,000 unit PO BID 12/18/19 06/11/22 07/21/20 History mcg (2,000 unit) tablet duloxetine 60 mg capsule,delayed 60 mg PO BID 12/18/19 06/11/22 07/21/20 History release (Cymbalta) amitriptyline 25 mg tablet 75 mg PO BEDTIME 06/27/20 06/11/22 Unknown History hydrochlorothiazide 25 mg tablet 25 mg PO DAILY 02/18/21 06/11/22 Unknown History oxybutynin chloride 10 mg 10 mg PO DAILY #30 tabs 04/20/21 06/11/22 Unknown Rx tablet,extended release 24 hr esomeprazole magnesium 20 mg 20 mg PO BID 09/28/21 06/11/22 Unknown History capsule,delayed release (Nexium) diclofenac sodium 1 % topical gel 4 g topical QID #200 grams 01/11/22 06/11/22 Unknown Rx acetaminophen 325 mg capsule 325 mg PO QID PRN Pain 04/19/22 06/11/22 Unknown History (Tylenol) adalimumab 40 mg/0.8 mL 40 mg (0.8 mL) SUBCUT Q14D 05/27/22 06/11/22 Unknown Rx subcutaneous syringe kit (Humira) ankylosing Spondylitis #2 ea diclofenac sodium 75 mg 75 mg PO BID PRN Pain 06/11/22 06/11/22 Unknown History tablet,delayed release hydroxychloroquine 200 mg tablet 200 mg PO BID 06/11/22 06/11/22 Unknown History Allergies Allergy/AdvReac Type Severity Reaction Status Date / Time No Known Allergies Allergy Verified 06/11/22 12:16 [facility] Anesthesia Medical History Achilles tendinitis Axial spondyloarthritis Fibromyalgia Gout High risk medication use HLA B27 (HLA B27 positive) Hypertension Immunization counseling Inflammatory arthritis Inflammatory polyarthritis Lateral epicondylitis, left elbow Medial epicondylitis of left elbow Osteoarthritis Seronegative rheumatoid arthritis of both hands Subacromial bursitis Surgical History H/O breast surgery (~12/2018) History of carpal tunnel surgery (11/15/13) Left. Performed by Dr. Diaz at [facility] [place] in [place], [place]. History of suburethral sling procedure (07/22/20) Single incision suburethral sling with cystoscopy. Dx: Mixed urinary incon tinence. Performed by Dr. Penny at [facility] in [place], [place]. S/P bilateral breast reduction (~03/2018) Status post hysteroscopy (11/21/18) With D&C. DX: Postmenopausal bleeding. Performed by Dr. Penny at [facility] in [place], [place]. Findings: First-degree uterine prolapse, first to second- degree cystocele. Family History Mother Hypertension CAD (coronary artery disease) Hyperlipidemia Breast cancer 60 Uterine cancer, Onset Age: 79 Grandfather Diabetes Maternal Family/Other Diabetes Maternal aunt Family history of thyroid problem Maternal aunt Father , AT AGE 54 Bone cancer Sister Breast cancer x2 , 52 and 50 Other Rheumatoid arthritis Systemic lupus erythematosus, unspecified Denies family history of Colon cancer Ovarian cancer Clotting disorder Anesthesia complication Bleeding disorder Social History Smoking and tobacco status: never smoked Alcohol intake: never Marital status: Current occupational status: unemployed History of recent travel: No Female Reproductive History Date of last menstrual period: 06/07/17 Data Anesthesia : 06/11/22 12:35 06/11/22 12:35 Cardiac Studies: No Data to Display
[2022-06-11 12:47] LABS: Basophils # 0.1 10^3/uL (0.0-0.1); Basophils % 1.1 %; Eosinophils # 0.1 10^3/uL (0.0-0.8); Eosinophils % 2.5 %; Hematocrit 38.7 % (37.0-47.0); Hemoglobin 12.7 g/dL (11.5-15.3); Lymphocytes # 2.5 10^3/uL (0.8-4.8); Lymphocytes % 44.4 %; Mean Corpuscular HGB Conc 32.8 g/dL (30.0-36.0); Mean Corpuscular Hemoglobin 32.5 pg (28.0-34.0); Monocytes # 0.4 10^3/uL (0.2-0.9); Monocytes % 7.9 %; Neutrophils # 2.41 10^3/uL (1.8-7.7); Neutrophils % 43.6 %; Nucleated Red Blood Cells % 0 %; Platelet Count 277 10^3/cmm (130-400); Red Blood Count 3.91 10^6/uL (4.1-5.3); Red Cell Distribution Width 13.2 % (12.1-15.1); White Blood Count 5.5 10^3/uL (4.0-10.0)
[2022-06-11 13:05] LABS: Blood Urea Nitrogen 13 mg/dL (8-23); Calcium 9.9 mg/dL (8.5-10.5); Carbon Dioxide 28 mmol/L (22-29); Chloride 97 mmol/L (98-107); Glomerular Filtration Rate 63.7 mL/min (90-130); Glucose 115 mg/dL (65-115); Osmolality Calculated 285 mOsm/kg (285-295); Sodium 137 mmol/L (136-145)
[2022-06-16] VITALS (17 sets, daily range): BP systolic 107–157; BP diastolic 56–89; PULSE 83–96; RESP 14–18; TEMP 36.6–37.2; O2SAT 94–100
[2022-06-16] MEDS: scopolamine 1.5 Patch 1 PATCH TRANSDERMA ×2 (07:27→07:28)
[2022-06-16] MEDS: enoxaparin 30 mg/0.3 mL Syringe SUBCUT (07:28)
[2022-06-16] MEDS: sodium chloride 0.9% 1,000 ML 30 ML IV (07:32)
--- NOTE | 2022-06-16 08:13 | W.PM.OPSUD ---
Surgery/Procedure H&P Update DATE OF PROCEDURE: June 16, 2022 DATE H&P PERFORMED: 06/11/22 H&P UPDATE INFORMATION: I have reviewed H&P completed within last 30 days, I have examined patient prior to procedure and No changes to prior documentation PREOP DIAGNOSIS: Postmenopausal bleeding PLANNED PROCEDURE: Operation Date: 06/16/22 08:30 Proposed Procedures p Total vaginal hysterectomy, bilateral salpingo-oophorectomy 63691,N95.0(Not Applicable) - Dionicio Colindres MD s Salpingo-Oophorectomy (Vaginal)(Not Applicable) - Dionicio Colindres MD
[2022-06-16 08:24] LABS: Basophils % 0.8 %; Eosinophils # 0.1 10^3/uL (0.0-0.8); Eosinophils % 2.2 %; Hematocrit 35.5 % (37.0-47.0); Hemoglobin 11.8 g/dL (11.5-15.3); Lymphocytes # 1.9 10^3/uL (0.8-4.8); Lymphocytes % 38.9 %; Mean Corpuscular HGB Conc 33.2 g/dL (30.0-36.0); Mean Corpuscular Hemoglobin 32.8 pg (28.0-34.0); Mean Corpuscular Volume 98.6 fl (81-99); Mean Platelet Volume 12.3 fL (7.4-10.4); Monocytes # 0.4 10^3/uL (0.2-0.9); Monocytes % 8.4 %; Neutrophils # 2.46 10^3/uL (1.8-7.7); Neutrophils % 49.3 %; Nucleated Red Blood Cells % 0 %; Platelet Count 238 10^3/cmm (130-400); Red Cell Distribution Width 13.4 % (12.1-15.1)
[2022-06-16] MEDS: ceFOXitin 2,000 MG in sodium chloride 0.9% (plus) 50 ML 100 MG IV (08:25)
--- NOTE | 2022-06-16 08:25 | P.ANESUD_ITS ---
Pre-Anesthetic Update Pre-Anesthetic Assessment: Date of Surgery/Procedure: 06/16/22 Preop Jeni gnosis: Postmenopausal bleeding Proposed Procedure: Operation Date: 06/16/22 08:30 Proposed Procedures p Total vaginal hysterectomy, bilateral salpingo-oophorectomy 89723,N95.0(Not Applicable) - Dionicio Colindres MD s Salpingo-Oophorectomy (Vaginal)(Not Applicable) - Dionicio Colindres MD Any changes to Pre-Anesthetic Assessment?: No Last Intake: Intake Last Liquid Date 06/15/22 Last Liquid Time 20:00 Last Solid Date 06/15/22 Last Solid Time 17:30 Labs Last 48hrs: Short CBC 06/16/22 Range/Units 07:58 WBC 5.0 (4.0-10.0) 10^3/ uL Hgb 11.8 (11.5-15.3) g/dL Hct 35.5 L (37.0-47.0) % MCV 98.6 (81-99) fl Plt Count 238 (130-400) 10^3/c mm Neut % (Auto) 49.3 % Neut # (Auto) 2.46 (1.8-7.7) 10^3/u L Vitals: Temperature 99 F 06/16/22 07:24 Temperature Source Temporal Artery S can 06/16/22 07:24 Pulse Rate 89 06/16/22 07:24 Respiratory Rate 18 06/16/22 07:24 Blood Pressure 147/86 06/16/22 07:24 Blood Pressure Shweta n 106 06/16/22 07:24 Pulse Oximetry 99 06/16/22 07:24 Oxygen Delivery Me thod 06/16/22 07:16 Exam: Pre-Anes Outpt Exam: alert, oriented x 3, clear to auscultation bilaterally and regular rate & rhythm Cardiac Studies: No Data to Display
[2022-06-16 08:48] LABS: Albumin Level 3.6 g/dL (3.5-5.2); Alkaline Phosphatase 86 U/L (35-105); Blood Urea Nitrogen 15 mg/dL (8-23); Calcium 9.7 mg/dL (8.5-10.5); Carbon Dioxide 28 mmol/L (22-29); Chloride 98 mmol/L (98-107); Globulin 3.4 g/dL (1.3-4.6); Glomerular Filtration Rate 63.7 mL/min (90-130); Glucose 114 mg/dL (65-115); Osmolality Calculated 290 mOsm/kg (285-295); Sodium 139 mmol/L (136-145); Total Bilirubin 0.2 mg/dL (0.15-1.2)
[2022-06-16 08:54] LABS: Anion Gap 17.1 (5-19); Potassium 4.1 mmol/L (3.5-5.1)
[2022-06-16 08:55] LABS: Alanine Aminotransferase 24 U/L (0-33); Aspartate Amino Transferase 25 U/L (0-32)
[2022-06-16 09:14] LABS: Add Urine Microscopic? NO; Charge for UA Resulting for Rev
[2022-06-16 09:20] LABS: Bilirubin Urine Negative (Negative); Blood Urine Negative (Negative); Glucose Urine UA Negative (Normal); Ketones Urine Negative (Negative); Leukocyte Esterase Urine Negative; Nitrate Urine Negative; Protein Urine Negative (Negative); Specific Gravity, Urine 1.025 (1.005-1.030); Urine Appearance Clear (CLEAR); Urine Color Yellow (Yellow); Urobilinogen Urine 0.2 mg/dL (Negative)
--- NOTE | 2022-06-16 10:25 | P.OP_ITS ---
Operative Report Date of procedure: June 16, 2022 Pre-op diagnosis: Preop Diagnosis Postmenopausal bleeding Post-op diagnosis: Same as above Procedure done: Total vaginal hysterectomy. Bilateral salpingo-oophorectomy. Surgeon: Dionicio Colindres MD Estimated blood loss (mL): 150 IV fluids (mL): 500 Urine output (mL): 100 Complications: None Procedure: After informed consent and risks, benefits, indications and alternatives reviewed with the patient was taken to the operating room. The patient was placed in dorsal lithotomy position prepped, and draped in the usual sterile fashion. The pre-procedure timeout verifying the correct patient, procedure, site and side, could not requirements was performed and acknowledge by the OR team. A Jimenez catheter was placed. A Bookwalter vaginal retractor was placed into the vagina in usual manner visualize the cervix. Cervix was grasped with a single tooth tenaculum and circumferentially infiltrated with 2% lidocaine with epinephrine. Then cervix was circumferentially incised with bovie and the bladder was dissected off the pubovesical cervical fascia anteriorly with a sponge stick and Metzenbaum scissors. The anterior peritoneal reflection was identified and the anterior cul-de-sac was entered sharply with Metzenbaum scissors. The same procedure was performed posteriorly and a posterior colpotomy was made through the posterior cul-de-sac space without difficulty and the posterior blade of the Bookwalter vaginal retractor was advanced posteriorly into the cul-de-sac. At this time, the left and right uterosacral ligaments were isolated and ligated with 0 Vicryl. The Enseal device was placed over the uterosacral ligaments on either side and was then used in a serial fashion up through the cardinal ligaments bilaterally cross-clamped, cut, and sealed with the Enseal device. Finally, the uterine arteries were cross-clamped, cut, sealed and ligated with the Enseal device. Hemostasis was assured. The broad ligaments were then serially clamped, sealed and cut with the Enseal device on both sides. Excellent hemostasis was visualized. Both cornua were clamped, sealed and cut with the Enseal device. Then the pedicles were then suture ligated with excellent hemostasis. The uterus was excised and submitted for pathologic evaluation. No other abnormalities were noted in the pelvic cavity. Then the right side Infundibular ligament was identified. The ureter was con firmed along the pelvic side wall and peristalsis was noted. The Enseal device was then used to clamp, sealed and transcepted at middistance, again being sure to be clear of the ureter and the fallopian tube and ovary were removed. The same process was then repeated on the left side. Good hemostasis was assure on both sides. The peritoneum was then closed in a pursestring fashion with 0 Vicryl suture. The vaginal cuff angles were closed with [id number] #0 Vicryl suture on both sides and transfixed with the ipsilateral cardinal and uterosacral ligaments. The remainder of the vaginal cuff was closed with #0 Vicryl in a running locked fashion. At this time, instruments were removed from the vagina at hemostasis assured. Jimenez catheter was noted yielding clear baltazar urine. The patient was taken out of dorsal lithotomy position and awakened from the general anesthesia. The patient tolerated the procedure well and was taken to the PACU recovery room in a stable condition. Sponge, lap, needle and instruments counts were correct x3.
[2022-06-16] MEDS: dextrose 5%-lactated ringers 1,000 ML 125 ML IV ×2 (11:55→20:20)
[2022-06-16] MEDS: ketorolac 30 mg/mL INJ IVP ×2 (12:16→18:07)
[2022-06-16] MEDS: HYDROcodone-acetaminophen 5-325 mg Tablet PO (14:55)
--- NOTE | 2022-06-16 15:35 | ANE.PACU2 ---
Inpatient post-anesthesia follow up: Airway intact: Yes Vital signs: Temperature 98.0 F Pulse Rate 90 Respiratory Rate 15 Blood Pressure 141/84 Pulse Oximetry 97 Oxygen Delivery Me thod Room Air Oxygen Flow Rate 6 Fraction of Inspir ed Oxygen Hydration adequate: Yes Nausea and vomiting: No Pain level: 3 Mental status: Baseline
[2022-06-16] MEDS: hydroxychloroquine 200 mg Tablet PO (18:05)
[2022-06-16] MEDS: docusate sodium 100 mg Capsule PO (18:05)
[2022-06-16] MEDS: duloxetine 60 mg Capsule PO (18:05)
[2022-06-16] MEDS: cholecalciferol (vitamin D3) 1,000 unit Tablet 2000 UNIT PO (18:06)
[2022-06-16] MEDS: ALPRAZolam 0.5 mg Tablet PO (20:20)
[2022-06-16] MEDS: amitriptyline 25 mg Tablet 50 MG PO (20:57)
[2022-06-17] MEDS: ketorolac 30 mg/mL INJ IVP (00:59)
[2022-06-17 05:00] VITALS: BP 124/80; PULSE 90; RESP 16; TEMP 36.9
[2022-06-17 05:22] LABS: Hematocrit 28.6 % (37.0-47.0); Hemoglobin 9.5 g/dL (11.5-15.3); Mean Corpuscular HGB Conc 33.2 g/dL (30.0-36.0); Mean Corpuscular Hemoglobin 32.5 pg (28.0-34.0); Mean Corpuscular Volume 97.9 fl (81-99); Mean Platelet Volume 11.7 fL (7.4-10.4); Platelet Count 235 10^3/cmm (130-400); Red Blood Count 2.92 10^6/uL (4.1-5.3); Red Cell Distribution Width 13.2 % (12.1-15.1); White Blood Count 9.2 10^3/uL (4.0-10.0)
[2022-06-17] MEDS: pantoprazole DR 40 mg Tablet PO (08:56)
[2022-06-17] MEDS: ibuprofen 800 mg tablet PO (08:56)
[2022-06-17] MEDS: cholecalciferol (vitamin D3) 1,000 unit Tablet 2000 UNIT PO (08:56)
[2022-06-17] MEDS: hydroCHLOROthiazide 25 mg Tablet PO (08:56)
[2022-06-17] MEDS: docusate sodium 100 mg Capsule PO (08:56)
[2022-06-17] MEDS: hydroxychloroquine 200 mg Tablet PO (08:57)
[2022-06-17] MEDS: allopurinol 300 mg Tablet PO (08:57)
[2022-06-17] MEDS: duloxetine 60 mg Capsule PO (08:57)
[2022-06-17] MEDS: oxybutynin chloride XL 5 MG TABLET 10 MG PO (08:57)
[2022-06-17 10:09] VITALS: BP 132/78; PULSE 98; RESP 15; TEMP 36.6
--- NOTE | 2022-06-17 10:11 | PM.OBGYDC ---
Discharge Providers MACHINE BANDER AND CELLOPHANER Date of Admission: 06/16/22 10:28 Date of Discharge: 06/17/22 Attending Provider at Admission: Dionicio Colindres MD Attending Provider at Discharge: Dionicio Colindres MD Primary Care Provider: Rodolfo Edmonds MD Reason for Visit Reason for Visit: POSTMENOPAUSAL BLEEDING Hospital Course Hospital Course Mrs. Nash 61-year-old female with a history of postmenopausal bleeding. Admitted for planned total vaginal hysterectomy with bilateral salpingo-oophorectomy. The procedure was performed without complications. Overnight observation was uneventful. She is afebrile and hemodynamically stable postoperative day 1. Tolerated diet well. Ambulating without difficulty. Physical Exam Narrative: GA: Alert and oriented ?3. HEENT: WNL. Heart: Regular rate and rhythm. Lungs: Clear to auscultation bilaterally. Abdomen: Bowel sounds present, nontender. ENGINEERING CLERK: Scant spotting bleeding. Extremities: No edema, no cyanosis, no calves pain. Urinary Catheter Management: Jimenez: Cath Placed During This Visit: yes, but has since been removed by the nurse Reason for Continuing Indwelling Catheter: Decision to DC Catheter Urinary Catheter Date of Insertion: 06/16/22 Urinary Catheter Time of Insertion: 08:59 Date Urinary Catheter Removed: 06/17/22 Time Urinary Catheter Discontinued: 06:25 History History History 2 Term 2 0 Miscarriages/Ectopic 0 Living Children 2 Discharge Data Studies Completed and Pending Pending at discharge Category Date Time Status Pathology: Surgical [PTH] Routine Pth 06/16/22 10:39 Received Laboratory Results WBC 9.2 10^3/uL (4.0-10.0) 06/17/22 05:15 RBC 2.92 10^6/uL (4.1-5.3) L 06/17/22 05:15 Hgb 9.5 g/dL (11.5-15.3) L 06/17/22 05:15 Hct 28.6 % (37.0-47.0) L 06/17/22 05:15 MCV 97.9 fl (81-99) 06/17/22 05:15 MCH 32.5 pg (28.0-34.0) 06/17/22 05:15 MCHC 33.2 g/dL (30.0-36.0) 06/17/22 05:15 RDW 13.2 % (12.1-15.1) 06/17/22 05:15 Plt Count 235 10^3/cmm (130-400) 06/17/22 05:15 MPV 11.7 fL (7.4-10.4) H 06/17/22 05:15 Neut % (Auto) 49.3 % 06/16/22 07:58 Lymph % (Auto) 38.9 % 06/16/22 07:58 [place] % (Auto) 8.4 % 06/16/22 07:58 Eos % (Auto) 2.2 % 06/16/22 07:58 Baso % (Auto) 0.8 % 06/16/22 07:58 Neut # (Auto) 2.46 10^3/uL (1.8-7.7) 06/16/22 07:58 Lymph # (Auto) 1.9 10^3/uL (0.8-4.8) 06/16/22 07:58 [place] # (Auto) 0.4 10^3/uL (0.2-0.9) 06/16/22 07:58 Eos # (Auto) 0.1 10^3/uL (0.0-0.8) 06/16/22 07:58 Baso # (Auto) 0.0 10^3/uL (0.0-0.1) 06/16/22 07:58 Nucleated RBC % (auto) 0 % 06/16/22 07:58 Nucleated RBCs # 0.0 /100WBC 06/16/22 07:58 Sodium 139 mmol/L (136-145) 06/16/22 07:56 Potassium 4.1 mmol/L (3.5-5.1) 06/16/22 07:56 Chloride 98 mmol/L (98-107) 06/16/22 07:56 Carbon Dioxide 28 mmol/L (22-29) 06/16/22 07:56 Anion Gap 17.1 (5-19) 06/16/22 07:56 BUN 15 mg/dL (8-23) 06/16/22 07:56 Creatinine 0.9 mg/dL (0.5-0.9) 06/16/22 07:56 GFR Calculation 63.7 mL/min (90-130) L 06/16/22 07:56 Glucose 114 mg/dL (65-115) 06/16/22 07:56 Calculated Osmolality 290 mOsm/kg (285-295) 06/16/22 07:56 Calcium 9.7 mg/dL (8.5-10.5) 06/16/22 07:56 Total Bilirubin 0.2 mg/dL (0.15-1.2) 06/16/22 07:56 AST 25 U/L (0-32) 06/16/22 07:56 ALT 24 U/L (0-33) 06/16/22 07:56 Alkaline Phosphatase 86 U/L (35-105) 06/16/22 07:56 Total Protein 7.0 g/dL (6.6-8.7) 06/16/22 07:56 Albumin 3.6 g/dL (3.5-5.2) 06/16/22 07:56 Globulin 3.4 g/dL (1.3-4.6) 06/16/22 07:56 Urine Color Yellow (Yellow) 06/16/22 09:02 Urine Appearance Clear (CLEAR) 06/16/22 09:02 Urine pH 7.0 (5-7) 06/16/22 09:02 Ur Specific Lavinia 1.025 (1.005-1.030) 06/16/22 09:02 Urine Protein Negative (Negative) 06/16/22 09:02 Urine Glucose (UA) Negative (Normal) 06/16/22 09:02 Urine Ketones Negative (Negative) 06/16/22 09:02 Urine Blood Negative (Negative) 06/16/22 09:02 Urine Nitrate Negative 06/16/22 09:02 Urine Bilirubin Negative (Negative) 06/16/22 09:02 Urine Urobilinogen 0.2 mg/dL (Negative) 06/16/22 09:02 Ur Leukocyte Esterase Negative 06/16/22 09:02 Blood Type A Positive 06/16/22 07:56 Rho(D) Type Positive 06/16/22 07:56 Antibody Screen Negative 06/16/22 07:56 Vitals Last Vital Signs Temp 97.8 F 06/17/22 10:09 Pulse 98 06/17/22 10:09 Resp 15 06/17/22 10:09 BP 132/78 06/17/22 10:09 Pulse Ox 96 06/16/22 21:05 O2 Del Method 06/17/22 05:00 O2 Flow Rate 6 06/16/22 10:39 Discharge Plan Discharge Patient Disposition: Home Condition: Stable Prescriptions: New hydrocodone-acetaminophen 5-325 mg tablet 1 tab PO Q4H PRN (Reason: pain) Qty: 20 0RF ibuprofen 800 mg tablet 800 mg PO TID PRN (Reason: pain) Qty: 60 0RF docusate sodium [Colace] 100 mg capsule 100 mg PO BID 30 Days Qty: 60 0RF ferrous sulfate [Iron (ferrous sulfate)] 325 mg (65 mg iron) tablet 325 mg PO BID 30 Days Qty: 60 0RF Continued allopurinol 300 mg tablet 300 mg PO DAILY alprazolam 0.5 mg tablet 0.5 mg PO BEDTIME duloxetine [Cymbalta] 60 mg capsule,delayed release(DR/EC) 60 mg PO BID cholecalciferol (vitamin D3) 2,000 unit tablet 2,000 unit PO BID amitriptyline 25 mg tablet 75 mg PO BEDTIME Rx Instructions: 1-3 tablets prn bedtime sleep PO daily; hydrochlorothiazide 25 mg tablet 25 mg PO DAILY esomeprazole magnesium [Nexium] 20 mg capsule,delayed release(DR/EC) 20 mg PO BID diclofenac sodium 1 % gel 4 g topical QID Qty: 200 2RF Rx Instructions: apply to affected area as needed acetaminophen [Tylenol] 325 mg capsule 325 mg PO QID PRN (Reason: Pain) oxybutynin chloride 10 mg tablet extended release 24hr 10 mg PO DAILY Qty: 30 6RF Humira 40 mg/0.8 mL syringe kit 40 mg SUBCUT Q14D Qty: 2 3RF Hold Instructions: Doctor's Order diclofenac sodium 75 mg tablet,delayed release (DR/EC) 75 mg PO BID PRN (Reason: Pain) hydroxychloroquine 200 mg tablet 200 mg PO BID Discharge Orders: Discharge Order (Routine); Ordered 06/17/22 Ordered By: Dionicio Colindres Referrals: Dionicio Colindres MD [Physician] - 2 weeks (As scheduled) Discharge Diet: Advance as tolerated and Usual diet Discharge Activity: Limit activity as instructed Patient Instructions: Opioid Safety, Vaginal Hysterectomy (GEN), Salpingo-Oophorectomy (GEN) Activity Restrictions/Additional Instructions: 1. Please call [facility] on next working day to make your post-operative appointment in 2 weeks. 2. Please stay home until you come back to the clinic on first post-operative check up. 3. Please follow instructions on your medications CAREFULLY. 4. If you have abdominal incision, do not cover it unless dressing is necessary because of drainage. OK to shower, but avoid bath. Leave steri-strips until they fall off. If they are still on one week after surgery, you may remove them. 5. If you had vaginal surgery or vaginal repair, Dr. Colindres may instruct you to take SITZ bath. 6. Yellow, blood tinged odorous vaginal discharge is usually normal after hysterectomy or vaginal surgeries. 7. No sexual intercourse, tampons, or douches until you are completely released from the post-operative care. 8. Avoid constipation by eating right and maybe using some Metamucil or Milk of Magnesia. 9. All prescription refills are given during the working hours. Please do no wait till it runs out. Call the clinic at [phone] before your medication runs out. The clinic will get in touch with your doctor to prescribe medications if necessary. 10. Please remain within 40 mile radius from our hospital because emergencies do happen now and then during the post-operative period. 11. If you have stairs at home, take one step at a time slowly and minimize the number of trips. It helps to stay in one floor for the next few days. No lifting except what you can lift by one hand until you are released from the post-operative care. 12. Driving is discouraged until you are well healed. It may be 3-4 weeks before you feel strong enough to drive. You should be able to turn and look through the rear window without pain and you should be able to push the brake pedal very hard without pain before you drive. No fast rules, but SAFETY should be your primary concern. DO NOT drive if you are on sedating medications such as narcotics. 13. Call the clinic (during working hours) to make urgent appointment or go to the Emergency room, if any of the following occurs: i. Vaginal bleeding becomes heavy, more than a period. ii. Incision becomes red and sore, or drains pus. iii. Your temperature is over 100.4 or you have chill. iv. IV site becomes red and swollen (a little ``knot?? is usually OK) v. Persistent nausea and vomiting vi. Persistent constipation or diarrhea vii. Rash or allergic reaction to medications. Discharge Attestations MACHINE BANDER AND CELLOPHANER Time Spent in Discharge Care*: greater than 30 min Coding Level of Care Code Acute Fourdrinier Machine Tender for Vilma Foster
[2022-06-17 10:49] VITALS: BP 135/79; PULSE 87; RESP 16; TEMP 36.6; O2SAT 97
== END 2022-06-17 10:48 | disposition home or self-care (01) ==
LOC: OBGYN 10:29
PROVIDERS: Anesthesiology; Admitting Provider Obstetrics & Gynecology; PCP Family Medicine; Visit Provider Obstetrics & Gynecology
PROC: (CPT 58262; principal; 2022-06-16 08:30)
PROC: (CPT 58720; 2022-06-16 08:30)
DX: N95.0 Postmenopausal bleeding (principal); G47.30 Sleep apnea, unspecified; I10 Essential (primary) hypertension; K21.9 Gastro-esophageal reflux disease without esophagitis; M79.7 Fibromyalgia; M06.9 Rheumatoid arthritis, unspecified; M19.90 Unspecified osteoarthritis, unspecified site
CPT/HCPCS: 58262; 36415; 80048; 80053; 81003; 85025; 85027; 86850; 86900; 88307; G0378; J0694; J1100; J1650; J1885; J2370; J2405; J2704; J3010; J3490; J7030; Q9968

== ENCOUNTER 2022-06-23 12:36 | Emergency (ER) | payer OTHER, SELFPAY ==
[2022-06-23 12:42] VITALS: BP 152/73; PULSE 97; RESP 18; TEMP 37.1; O2SAT 99; BMI 35.5
--- NOTE | 2022-06-23 13:00 | ED_ITS ---
HPI - Female Genitourinary General: Chief complaint: Abdominal Pain Stated complaint: Post Hysterectomy Pain Time Seen by Provider: 06/23/22 12:47 History of Present Illness: Patient is roughly 1 week status post vaginal hysterectomy complaining of suprapubic discomfort and dysuria. She has a follow up appointment wit her surgeon this week. She denies significant abdominal pain or bloating aside from expected post op pain. No abdominal distention or constipation, states having normal BMs, no nausea or vomiting, no fever. Associated symptoms: Reports abdominal pain; Deny headache(s), nausea or vaginal discharge Date of Last Menstrual Period: 06/07/17 Review of Systems Const: Denies: fever(s), chills, body aches, change in appetite, change in weight or diaphoresis Eyes: Denies: change in vision or eye discomfort ENMT: Denies: throat pain, hoarseness, mouth pain or nasal congestion Card: Denies: chest pain, palpitations, irregular heart rhythm, edema, swelling of feet/ankles, lightheadedness, dyspnea on exertion, orthopnea or acrocyanosis Resp: Denies: dyspnea, non-productive cough or wheezing GI: Reports: abdominal pain; Denies: nausea, vomiting, dysphagia, early satiety, diarrhea, constipation, bloating, GI cramping, pain on defecation or rectal pain : Reports: dysuria and urinary urgency; Denies: flank pain, difficulty voiding, urinary hesitancy, dribbling, genital pruritis, vaginal odor, vaginal bleeding or vaginal discharge Musc: Denies: neck pain, extremity pain, extremity swelling, joint pain or muscle cramps Skin/Breast: Denies: rash or erythema Neuro: Denies: headache(s), numbness in extremities or weakness in extremities Psych: Denies: anxiety or depression Endo: Denies: polyuria Gabe/Lymph: Denies: easy bruising All/Imm: Denies: urticaria PFSH ED PFSH: Medical History Achilles tendinitis Axial spondyloarthritis Fibromyalgia Gout High risk medication use HLA B27 (HLA B27 positive) Hypertension Immunization counseling Inflammatory arthritis Inflammatory polyarthritis Lateral epicondylitis, left elbow Medial epicondylitis of left elbow Osteoarthritis Seronegative rheumatoid arthritis of both hands Subacromial bursitis Surgical History H/O breast surgery (~12/2018) History of carpal tunnel surgery (11/15/13) Left. Performed by Dr. Diaz at [facility] in [place], [place]. History of suburethral sling procedure (07/22/20) Single incision suburethral sling with cystoscopy. Dx: Mixed urinary incontinence. Performed by Dr. Penny at [facility] in [place], [place]. S/P bilateral breast reduction (~03/2018) Status post hysteroscopy (11/21/18) With D&C. DX: Postmenopausal bleeding. Performed by Dr. Penny at [facility] in [place], [place]. Findings: First-degree uterine prolapse, first to second- degree cystocele. Family History Mother Hypertension CAD (coronary artery disease) Hyperlipidemia Breast cancer 60 Uterine cancer, Onset Age: 79 Grandfather Diabetes Maternal Family/Other Diabetes Maternal aunt Family history of thyroid problem Maternal aunt Father , AT AGE 54 Bone cancer Sister Breast cancer x2 , 52 and 50 Other Rheumatoid arthritis Systemic lupus erythematosus, unspecified Denies family history of Colon cancer Ovarian cancer Clotting disorder Anesthesia complication Bleeding disorder Social History Smoking and tobacco status: never smoked Alcohol intake: never Marital status: Current occupational status: unemployed History of recent travel: No Female Reproductive History: Date of last menstrual period: 06/07/17 Physical Exam Const: COMMON NORMALS: no acute distress, patient oriented x3, no limitations, healthy appearing, alert and well nourished HENMT: FACE & SINUS: normal facial exam Eye: GENERAL EYE: appearance normal, both eyes and all related structures SCLERA: sclerae normal PUPIL: Yes Pupil accommodation reflex normal Neck/C-Spine: COMMON NORMALS: full ROM Chest: COMMONS NORMALS: normal inspection of the chest Resp: COMMON NORMALS: normal respiratory effort and clear to auscultation bilaterally EFFORT & INSPECTION: Yes able to speak in complete sentences AUSCULTATION: clear to auscultation bilaterally Cardio: COMMON NORMALS: regular rate and regular rhythm RATE: regular rate RHYTHM: regular rhythm GI: COMMON NORMALS: Normal to inspection, nondistended, normoactive bowel sounds present and non-tender : COMMON NORMALS: Yes no CVA tenderness BLADDER/KIDNEY EXAM: Yes no CVA tenderness Back/Pelvis: COMMON NORMALS: no CVA tenderness, thoracic and lumbar spine normal to inspection, no thoracic nor lumbar tenderness and thoraco-lumbar ROM normal Extremity: COMMON NORMALS: normal to inspection, full ROM, no calf tenderness and no pedal edema Neuro: COMMON NORMALS: patient oriented x3, CN's II-XII intact bilaterally, moves all extremities and gait normal SENSORIUM/ORIENTATION: Yes alert Psych: COMMON NORMALS: mental status grossly normal, cooperative, normal affect and activity/motor behavior normal Skin: COMMON NORMALS: no wounds and no jaundice Course Vital Signs: Vital signs: Vital Signs Temperature 98.7 F 06/23/22 12:42 Pulse Rate 97 06/23/22 12:42 Respiratory Rate 18 06/23/22 12:42 Blood Pressure 152/73 06/23/22 12:42 Pulse Oximetry 99 06/23/22 12:42 Oxygen Delivery Me thod 06/23/22 12:42 MDM - Female Medical Decision Making patient denies specific surgical related complaints, states dysuria and suprapubic discomfort only denies need for extensive workup sees surgeon this week. Denies concerns Lab Data Laboratory Results Urine Color Yellow (Yellow) 06/23/22 13:20 Urine Appearance Clear (CLEAR) 06/23/22 13:20 Urine pH 6 (5-7) 06/23/22 13:20 Ur Specific Lamar 1.020 (1.005-1.030) 06/23/22 13:20 Urine Protein Neg (Negative) 06/23/22 13:20 Urine Glucose (UA) Norm (Normal) 06/23/22 13:20 Urine Ketones Negative (Negative) 06/23/22 13:20 Urine Blood 2+ (Negative) H 06/23/22 13:20 Urine Nitrate Negative (Negative) 06/23/22 13:20 Urine Bilirubin Neg (Negative) 06/23/22 13:20 Urine Urobilinogen 1 mg/dL (Negative) H 06/23/22 13:20 Ur Leukocyte Esterase Negative (Negative) 06/23/22 13:20 Urine RBC 5-10 /hpf (0-2) H 06/23/22 13:20 Urine WBC 0-4 /hpf (0-5) H 06/23/22 13:20 Ur Squamous Epith Cells 10-15 /hpf (0-5) H 06/23/22 13:20 Amorphous Sediment Not Reportable 06/23/22 13:20 Urine Bacteria 1+ /hpf (NONE) H 06/23/22 13:20 Urine Mucus Trace /hpf 06/23/22 13:20 Discharge Plan Discharge Patient Disposition: Home Clinical Impression: Dysuria Condition: Stable Prescriptions: No Action allopurinol 300 mg tablet 300 mg PO DAILY duloxetine [Cymbalta] 60 mg capsule,delayed release(DR/EC) 60 mg PO BID cholecalciferol (vitamin D3) 2,000 unit tablet 2,000 unit PO BID amitriptyline 25 mg tablet 75 mg PO BEDTIME Rx Instructions: 1-3 tablets prn bedtime sleep PO daily; hydrochlorothiazide 25 mg tablet 25 mg PO DAILY esomeprazole magnesium [Nexium] 20 mg capsule,delayed release(DR/EC) 20 mg PO BID diclofenac sodium 1 % gel 4 g topical QID Qty: 200 2RF Rx Instructions: apply to affected area as needed acetaminophen [Tylenol] 325 mg capsule 325 mg PO QID PRN (Reason: Pain) oxybutynin chloride 10 mg tablet extended release 24hr 10 mg PO DAILY Qty: 30 6RF Humira 40 mg/0.8 mL syringe kit 40 mg SUBCUT Q14D Qty: 2 3RF Hold Instructions: Doctor's Order alprazolam 0.5 mg tablet 0.5 mg PO BEDTIME Qty: 30 5RF diclofenac sodium 75 mg tablet,delayed release (DR/EC) 75 mg PO BID PRN (Reason: Pain) hydroxychloroquine 200 mg tablet 200 mg PO BID ibuprofen 800 mg tablet 800 mg PO TID PRN (Reason: pain) Qty: 60 0RF Colace 100 mg capsule 100 mg PO BID 30 Days Qty: 60 0RF Iron (ferrous sulfate) 325 mg (65 mg iron) tablet 325 mg PO BID 30 Days Qty: 60 0RF hydrocodone-acetaminophen 5-325 mg tablet 1 tab PO Q4H PRN (Reason: pain) Qty: 20 0RF Discharge Orders: Discharge ED (Routine); Ordered 06/23/22 Ordered By: Missy Cardona Referrals: Rodolfo Edmonds MD [Primary Care Provider] - Discharge Diet: Usual diet Discharge Activity: Resume usual activity Patient Instructions: Opioid Safety, Pain Management, Dysuria - Female Coding Level of Care Code ED Java Support Engineer for Chg Fwd History Problem Focused Exam Comprehensive Medical Decision Making Low Complexity
[2022-06-23 14:12] LABS: Add Urine Microscopic? YES; Bilirubin Urine Neg (Negative); Blood Urine 2+ (Negative); Glucose Urine UA Norm (Normal); Ketones Urine Negative (Negative); Leukocyte Esterase Urine Negative (Negative); Nitrate Urine Negative (Negative); Protein Urine Neg (Negative); Urine Appearance Clear (CLEAR); Urine Color Yellow (Yellow); Urobilinogen Urine 1 mg/dL (Negative); pH Urine 6 (5-7)
[2022-06-23 14:13] LABS: Add Urine Culture? No; Bacteria Urine 1+ /hpf; Mucus Urine TRACE /hpf; WBC Urine 0-4 /hpf (0-5)
[2022-06-23 14:51] VITALS: BP 136/78; PULSE 97; RESP 18; TEMP 37.1; O2SAT 99
== END 2022-06-23 14:48 | disposition home or self-care (01) ==
PROVIDERS: Emergency Provider Emergency Medicine; PCP Family Medicine
DX: R30.0 Dysuria (principal); I10 Essential (primary) hypertension
CPT/HCPCS: 81001; 99283

== ENCOUNTER → 2022-07-06 11:58 | Outpatient (BNVA) | payer OTHER, SELFPAY | PROVIDERS: PCP Family Medicine; Visit Provider Obstetrics & Gynecology | DX: R10.2 Pelvic and perineal pain (principal) | CPT/HCPCS: 76857 ==

== ENCOUNTER → 2022-07-21 13:58 | Outpatient (BNVA) | payer OTHER, SELFPAY | PROVIDERS: PCP Family Medicine; Visit Provider Obstetrics & Gynecology | DX: Z34.90 Encounter for supervision of normal pregnancy, unspecified, unspecified trimester (principal); R32 Unspecified urinary incontinence | CPT/HCPCS: 84315; 87086 ==

== ENCOUNTER → 2022-08-03 12:25 | Outpatient (BNVA) | payer OTHER, SELFPAY | PROVIDERS: PCP Family Medicine; Visit Provider Internal Medicine Rheumatology | DX: Z79.899 Other long term (current) drug therapy (principal); M46.90 Unspecified inflammatory spondylopathy, site unspecified; Z15.89 Genetic susceptibility to other disease; M79.7 Fibromyalgia | CPT/HCPCS: 36415; 80076; 82565; 85025; 86140 ==

== ENCOUNTER → 2022-11-08 11:57 | Outpatient (BNVA) | payer OTHER, SELFPAY | PROVIDERS: PCP Family Medicine; Visit Provider Internal Medicine Rheumatology | DX: M46.90 Unspecified inflammatory spondylopathy, site unspecified (principal); Z79.899 Other long term (current) drug therapy; Z15.89 Genetic susceptibility to other disease; M51.16 Intervertebral disc disorders with radiculopathy, lumbar region; M79.7 Fibromyalgia | CPT/HCPCS: 36415; 80076; 82565; 85025; 86140 ==

== ENCOUNTER 2023-01-14 09:37 | Outpatient (CLI) | payer OTHER, SELFPAY ==
--- NOTE | 2023-01-14 09:47 | MM_ITS ---
WS: [id number] BILATERAL SCREENING DIGITAL TOMOSYNTHESIS MAMMOGRAM WITH CAD HISTORY: SCREENING COMPARISON: 10/08/2021, 10/08/2020 and 06/11/2019 Bilateral CC and MLO views with tomosynthesis and synthetic mammography submitted. Computer aided det ection analyzed. Breast composition: The breasts are extremely dense, which lowers the sensitivity of mammography. No suspicious masses, microcalcifications or architectural distortion. Postsurgical changes from mammopl asty are reidentified. There is distortion of the breast tissue which is stable. No associated masses . Benign unchanged calcifications. MM/[place] [id number] IMPRESSION: BI-RADS: 2-Benign FOLLOW UP: 1 Year Follow-up
== END 2023-01-14 09:38 | disposition home or self-care (01) ==
LOC: RAD 09:42
PROVIDERS: PCP Family Medicine; Visit Provider Family Medicine
DX: Z12.31 Encounter for screening mammogram for malignant neoplasm of breast (principal)
CPT/HCPCS: 77063; 77067

== ENCOUNTER → 2023-01-19 13:14 | Outpatient (BNVA) | payer OTHER, SELFPAY | PROVIDERS: PCP Family Medicine; Visit Provider Internal Medicine Rheumatology | DX: M06.89 Other specified rheumatoid arthritis, multiple sites (principal); Z79.899 Other long term (current) drug therapy; M46.90 Unspecified inflammatory spondylopathy, site unspecified | CPT/HCPCS: 36415; 80076; 82565; 85025; 86140 ==

== ENCOUNTER 2023-02-05 17:28 | Emergency (ER) | payer OTHER, SELFPAY ==
[2023-02-05 17:30] VITALS: BP 182/102; PULSE 88; RESP 17; TEMP 36.7; O2SAT 95; BMI 35.9
--- NOTE | 2023-02-05 17:37 | W.ED.GENADLT ---
HPI - General Adult General: Chief complaint: General Medical Stated complaint: throat problems Time Seen by Provider: 02/05/23 17:31 History of Present Illness: Ms. Nash is a 62-year-old lady with history of hypertension, obesity, GERD, ALISA, rheumatoid arthritis, fibromyalgia presented to the emergency department for concern over intermittent episodes of her throat closing . She thinks that this has been going on for some period of time however she has only noticed it over the past month or so. She went to primary care and was treated for a pharyngitis however symptoms have persisted. She describes intermittent episodes of inability to breathe lasting about 5 seconds and then resolving. No loss of consciousness or neck pain with this no history of surgeries on the neck. No other specific changes in health, exacerbating, or alleviating factors identified. Location: neck Severity: moderate Pain Consistency: intermittent Exacerbating factors: eating Review of Systems General: Reports: 10 or more systems reviewed and unremarkable except in HPI and below PFSH ED PFSH: Medical History Achilles tendinitis Axial spondyloarthritis Fibromyalgia Gout High risk medication use HLA B27 (HLA B27 positive) Hypertension Inflammatory polyarthritis Lateral epicondylitis, left elbow Medial epicondylitis of left elbow Osteoarthritis Seronegative rheumatoid arthritis of both hands Subacromial bursitis Surgical History H/O breast surgery (~12/2018) H/O: hysterectomy (~06/16/22) Total vaginal hysterectomy with bilateral salpingo-oophorectomy performed by Dr. Colindres at [facility] History of carpal tunnel surgery (11/15/13) Left. [place]. Diaz [place] [facility] [place]. History of suburethral sling procedure (07/22/20) Single incision suburethral sling with cystoscopy. Dx: Mixed urinary incontinence. Per[place] Dr. Penny [place] [facility] [place]. S/P bilateral breast reduction (~03/2018) Status post hysteroscopy (11/21/18) With D&C. DX: Postmenopausal bleeding. Per[place] Dr. Penny at [facility] [place], [place]. Findings: First-degree uterine prolapse, first to second-degree cystocele. Family History Mother Hypertension CAD (coronary artery disease) Hyperlipidemia Breast cancer 60 Uterine cancer, Onset Age: 79 Grandfather Diabetes Maternal Family/Other Diabetes Maternal aunt Family history of thyroid problem Maternal aunt Father , AT AGE 54 Bone cancer Sister Breast cancer x2 , 52 and 50 Other Rheumatoid arthritis Systemic lupus erythematosus, unspecified Denies family history of Colon cancer Ovarian cancer Clotting disorder Anesthesia complication Bleeding disorder Social History Smoking and tobacco status: never smoked Substance/Drug Use: never Current occupational status: unemployed Physical Exam Const: COMMON NORMALS: alert GENERAL APPEARANCE: cooperative and well developed HENMT: COMMON NORMALS: normocephalic and atraumatic HEAD & SCALP: normocephalic and atraumatic OTHER: Unable to visualize posterior pharyngeal structures, Mallampati 4 Eye: COMMON NORMALS: conjunctivae normal CONJUNCTIVA: Yes conjunctivae normal SCLERA: sclerae normal Neck/C-Spine: COMMON NORMALS: supple GENERAL: Yes trachea midline Resp: COMMON NORMALS: normal respiratory effort EFFORT & INSPECTION: Yes able to speak in complete sentences Cardio: COMMON NORMALS: regular rate and regular rhythm RATE: regular rate RHYTHM: regular rhythm GI: COMMON NORMALS: Soft to palpation PALPATION: Yes Soft to palpation and No Tenderness to palpation present (GI) Extremity: GENERAL: Yes normal exam except as noted and No edema Neuro: COMMON NORMALS: moves all extremities SENSORIUM/ORIENTATION: Yes alert and No Orientation impaired Psych: COMMON NORMALS: mental status grossly normal and Normal thought process present THOUGHT PROCESS: Normal thought process present Course Vital Signs: Vital signs: Vital Signs Temperature 98.1 F 02/05/23 17:30 Pulse Rate 74 02/05/23 19:54 Respiratory Rate 18 02/05/23 19:54 Blood Pressure 134/86 02/05/23 19:54 Pulse Oximetry 98 02/05/23 19:54 Oxygen Delivery Me thod Room Air 02/05/23 19:30 [facility] - General Adult Medical Decision Making 62-year-old lady with intermittent episode of throat closing . Exam as above. No clear abnormality though very limited exam secondary to body habitus/Mallampati score. Clinical history likely for laryngospasms though somewhat unclear especially in limited exam. No indication for laboratory studies. CT demonstrates no acute abnormality to explain symptoms. Satisfactory for outpatient management with referral for ENT follow-up. The results of ED evaluation were discussed with the patient including prescriptions and/or symptomatic cares (if applicable) including appropriate and responsible use, followup plan, and return precautions. The patient verbalized understanding and felt safe for discharge. Medical Records I reviewed the patient's medical records. Lab Data I reviewed the patient's lab results. Radiology Impressions Neck CT 02/05/23 17:56 IMPRESSION: No acute findings. Discharge Plan Discharge Patient Disposition: Home Clinical Impression: Laryngospasms, Chronic GERD, Hoarseness of voice Condition: Stable Prescriptions: No Action cholecalciferol (vitamin D3) 2,000 unit tablet 2,000 unit PO BID esomeprazole magnesium [Nexium] 20 mg capsule,delayed release(DR/EC) 20 mg PO BID acetaminophen [Tylenol] 325 mg capsule 325 mg PO QID PRN (Reason: Pain) Humira 40 mg/0.8 mL syringe kit 40 mg SUBCUT Q14D Qty: 2 3RF Hold Instructions: Doctor's Order Rx Instructions: 340b, denied through insurance hydroxychloroquine 200 mg tablet 200 mg PO BID Qty: 60 3RF oxybutynin chloride 5 mg tablet 5 mg PO DAILY Qty: 90 3RF diclofenac sodium 75 mg tablet,delayed release (DR/EC) 75 mg PO BID PRN (Reason: Pain) Qty: 60 3RF doxycycline monohydrate 100 mg capsule 100 mg PO BID Qty: 14 0RF metoprolol tartrate 25 mg tablet 25 mg PO BID Qty: 60 11RF hydrochlorothiazide 25 mg tablet 25 mg PO DAILY Qty: 90 3RF duloxetine 60 mg capsule,delayed release(DR/EC) See Rx Instructions .ROUTE .COMPLEX Qty: 30 11RF Dose Instruction: take 1 capsule BY MOUTH TWICE DAILY Rx Instructions: take 1 capsule BY MOUTH TWICE DAILY alprazolam 0.5 mg tablet 0.5 mg PO BEDTIME Qty: 30 5RF allopurinol 300 mg tablet See Rx Instructions .ROUTE .COMPLEX Qty: 30 11RF Dose Instruction: TAKE 1 TABLET BY MOUTH EVERY DAY FOR GOUT Rx Instructions: TAKE 1 TABLET BY MOUTH EVERY DAY FOR GOUT tramadol 50 mg tablet 50 mg PO TID PRN (Reason: pain) Qty: 60 1RF diclofenac sodium 1 % gel 4 g topical QID PRN (Reason: joint pain) Qty: 200 2RF Rx Instructions: apply to affected area as needed amitriptyline 25 mg tablet See Rx Instructions .ROUTE .COMPLEX Qty: 90 2RF Dose Instruction: TAKE 3 TABLETS BY MOUTH EVERY EVENING Rx Instructions: TAKE 3 TABLETS BY MOUTH EVERY EVENING Discharge Orders: Discharge ED (Routine); Ordered 02/05/23 Ordered By: Boogie Caballero Referrals: Rodolfo Edmonds MD [Primary Care Provider] - Discharge Diet: Usual diet Discharge Activity: Resume usual activity Patient Instructions: GERD (Gastroesophageal Reflux Disease) (ED), Laryngospasm (DC) Activity Restrictions/Additional Instructions: Thank you for visiting the emergency department. You were seen and evaluated for hoarseness and possible spasms of the vocal cords. The exact cause of your symptoms is unclear. It does not appear to need hospitalization at this time. Please follow-up with your primary care provider. Please continue your antacid medications. I will message case management for ENT follow-up. Return to the emergency department for anything that you are concerned about and feel needs emergency department evaluation. Coding Level of Care Code ED Recruiting Scheduler for Vilma Foster
--- NOTE | 2023-02-05 17:56 | CTR_ITS ---
PROCEDURE INFORMATION: Exam: CT Neck With Contrast Exam date and time: 02/05/2023 6:21 PM Age: 62 years old Clinical indication: Throat pain; Additional info: Possible laryngospasms TECHNIQUE: Imaging protocol: Computed tomography of the neck with contrast. Radiation optimization: All CT scans at this facility use at least one of these dose optimization techniques: automated exposure control; mA and/or kV adjustment per patient size (includes targeted exams where dose is matched to clinical indication); or iterative reconstruction. Contrast material: OMNI 350; Contrast volume: 80 ml; Contrast route: INTRAVENOUS (IV); REPORTING DATA: Count of CT and Cardiac NM exams in prior 12 months: This patient has received 0 known CTs and 0 known cardiac nuclear medicine studies in the 12 months prior to the current study. COMPARISON: MR cervical spin wo con* [id number] 03/05/2022 7:29 AM RADIATION DOSE METRICS: Total DLP (mGy-cm): 316.49 FINDINGS: Pharynx: Unremarkable. No significant tonsillar enlargement. Larynx: Unremarkable. Epiglottis is normal. Prevertebral and retropharyngeal spaces: Unremarkable. Salivary glands: Normal. Glands are normal in size. Thyroid: Normal. No enlarged or calcified nodules. Lymph nodes: Unremarkable. No lymphadenopathy. Trachea: Visualized trachea is unremarkable. Lungs: Unremarkable as visualized. Bones/joints: Unremarkable. No acute fracture. Soft tissues: Unremarkable. No significant soft tissue swelling. CT/CT neck w con* [id number] IMPRESSION: No acute findings.
[2023-02-05 18:10] VITALS: BP 144/76; PULSE 80; O2SAT 99
[2023-02-05 19:01] VITALS: BP 116/66; PULSE 74; O2SAT 97
--- NOTE | 2023-02-05 19:14 | PC.NURSE ---
Rounded on pt, pt resting in bed calmly. Pt denies needs at this time.
[2023-02-05 19:30] VITALS: BP 131/67; PULSE 99; O2SAT 99
[2023-02-05 19:54] VITALS: BP 134/86; PULSE 74; RESP 18; O2SAT 98
--- NOTE | 2023-02-06 05:18 | DCPLANNER ---
Addendum entered by Abigail Lorenzana 03/04/23 09:40: Patient had a follow up appointment scheduled with ENT - patient did attend appointment. Addendum entered by Abigail Lorenzana 02/14/23 10:19: Patient has a follow up appointment scheduled for Saturday, March 04, 2023 at 10:00 with Wan at ENT. Original Note: senior technical project manager had message to schedule a follow up appointment for patient with ENT. senior technical project manager sent patients information to the front office staff at ENT. Patients information will be printed and reviewed. Clinic will call patient with appointment information.
== END 2023-02-05 19:57 | disposition home or self-care (01) ==
PROVIDERS: Emergency Provider Emergency Medicine; PCP Family Medicine
DX: J38.5 Laryngeal spasm (principal); R49.0 Dysphonia; K21.9 Gastro-esophageal reflux disease without esophagitis
CPT/HCPCS: 70491; 99285; Q9967

== ENCOUNTER → 2023-05-03 11:32 | Outpatient (BNVA) | payer OTHER, SELFPAY | PROVIDERS: PCP Family Medicine; Visit Provider Internal Medicine Rheumatology | DX: M46.90 Unspecified inflammatory spondylopathy, site unspecified (principal); Z79.899 Other long term (current) drug therapy | CPT/HCPCS: 36415; 80076; 82565; 85025; 86140 ==

== ENCOUNTER 2023-05-13 09:24 | Outpatient (CLI) | payer OTHER, SELFPAY ==
[2023-05-16 17:04] LABS: Quantiferon Mitogen 8.48 IU/mL; Quantiferon Nil 0.04 IU/mL; Quantiferon TB Gold NEGATIVE (NEGATIVE)
== END 2023-05-13 09:25 | disposition home or self-care (01) ==
PROVIDERS: PCP Family Medicine; Visit Provider Internal Medicine Rheumatology
DX: Z11.1 Encounter for screening for respiratory tuberculosis (principal)
CPT/HCPCS: 36415; 86480

== ENCOUNTER 2023-06-12 10:35 | Emergency (ER) | payer OTHER, SELFPAY ==
[2023-06-12 10:53] VITALS: BP 137/82; PULSE 83; RESP 16; O2SAT 97
[2023-06-12 12:29] VITALS: BP 138/83; PULSE 86; RESP 17; O2SAT 94
[2023-06-12 13:11] VITALS: BP 138/83; PULSE 70; RESP 17; O2SAT 97
--- NOTE | 2023-06-12 13:23 | ED_ITS ---
HPI - Skin/Abscess/Foreign Bdy General: Chief complaint: Skin/Abscess/Foreign Body Stated complaint: rash on stomach Time Seen by Provider: 06/12/23 12:13 Source: patient Mode of arrival: ambulatory History of Present Illness: 62-year-old female presents emergency room complaining of abdominal rash. Above her umbilicus she has a large area of redness and inflammation began yesterday is mildly tender to touch she denies any fever sweats or chills no nausea vomiting or diarrhea MD complaint: rash Onset (ago): day(s) Severity: moderate Quality: burning Pain Consistency: constant Relieving factors: none Exacerbating factors: none Associated symptoms: Deny arthralgias, chills, cough, fever(s), itching, myalgias, nausea, rigidity, short of breath or vomiting Review of Systems Const: Denies: fever(s), chills, fatigue or malaise ENMT: Denies: throat pain, ear or mastoid pain, nasal discharge or nasal congestion Card: Denies: chest pain, edema, dyspnea on exertion or orthopnea Resp: Denies: dyspnea, productive cough or non-productive cough GI: Denies: nausea or vomiting : Denies: flank pain, difficulty voiding, dysuria, urinary frequency or urinary urgency Skin/Breast: Reports: rash and erythema; Denies: pruritus PFSH ED PFSH: Medical History Achilles tendinitis Axial spondyloarthritis Fibromyalgia Gout High risk medication use HLA B27 (HLA B27 positive) Hypertension Inflammatory polyarthritis Lateral epicondylitis, left elbow Medial epicondylitis of left elbow Osteoarthritis Seronegative rheumatoid arthritis of both hands Subacromial bursitis Surgical History H/O breast surgery (~12/2018) H/O: hysterectomy (~06/16/22) Total vaginal hysterectomy with bilateral salpingo-oophorectomy performed by Dr. Colindres at [facility] History of carpal tunnel surgery (11/15/13) Left. Performed by Dr. Diaz at [facility] in [place], [place]. History of suburethral sling procedure (07/22/20) Single incision suburethral sling with cystoscopy. Dx: Mixed urinary incontinence. Performed by Dr. Penny at [facility] in [place], [place]. S/P bilateral breast reduction (~03/2018) Status post hysteroscopy (11/21/18) With D&C. DX: Postmenopausal bleeding. Performed by Dr. Penny at [facility] in [place], [place]. Findings: First-degree uterine prolapse, first to second- degree cystocele. Family History Mother Hypertension CAD (coronary artery disease) Hyperlipidemia Breast cancer 60 Uterine cancer, Onset Age: 79 Grandfather Diabetes Maternal Family/Other Diabetes Maternal aunt Family history of thyroid problem Maternal aunt Father , AT AGE 54 Bone cancer Sister Breast cancer x2 , 52 and 50 Other Rheumatoid arthritis Systemic lupus erythematosus, unspecified Denies family history of Colon cancer Ovarian cancer Clotting disorder Anesthesia complication Bleeding disorder Social History Smoking and tobacco status: never smoked Substance/Drug Use: never Current occupational status: unemployed Physical Exam Const: COMMON NORMALS: no acute distress GENERAL APPEARANCE: cooperative and comfortable ORIENTATION/CONSCIOUSNESS: Yes awake, Yes oriented to person, Yes oriented to place and Yes oriented to time HENMT: COMMON NORMALS: normocephalic, atraumatic and hearing grossly normal bilaterally HEAD & SCALP: normocephalic and atraumatic Extremity: COMMON NORMALS: normal to inspection, capillary refill normal, no clubbing, cyanosis or edema, no calf tenderness and no pedal edema Neuro: SENSORIUM/ORIENTATION: Yes oriented to person, Yes oriented to place and Yes oriented to time Skin: OTHER: Mildly excoriated areas on the upper abdominal wall irregular oval-shaped area of erythema mild induration no purulent drainage Course Vital Signs: Vital signs: Vital Signs Pulse Rate 70 06/12/23 13:11 Respiratory Rate 17 06/12/23 13:11 Blood Pressure 138/83 06/12/23 13:11 Pulse Oximetry 97 06/12/23 13:11 Oxygen Delivery Me thod Room Air 06/12/23 12:29 MDM - Skin/Abscess/Foreign Bdy Medicial Decision Making Mild cellulitis apply topical antibiotic ointment oral doxycycline. Your kidney function is already slightly marginal and concerned with Bactrim we admitted pusher into a acute renal failure. Follow-up with primary care if not improving No radiology studies performed this visit Discharge Plan Discharge Patient Disposition: Home Clinical Impression: Cellulitis Condition: Stable Prescriptions: New doxycycline hyclate 100 mg capsule 100 mg PO BID 10 Days Qty: 20 0RF mupirocin 2 % ointment 1 applic topical BID Qty: 50 0RF No Action cholecalciferol (vitamin D3) 2,000 unit tablet 2,000 unit PO BID esomeprazole magnesium [Nexium] 20 mg capsule,delayed release(DR/EC) 20 mg PO BID acetaminophen [Tylenol] 325 mg capsule 325 mg PO QID PRN (Reason: Pain) oxybutynin chloride 5 mg tablet 5 mg PO DAILY Qty: 90 3RF hydrocodone-acetaminophen 5-325 mg tablet 1 tab PO BID PRN hydroxychloroquine 200 mg tablet 200 mg PO BID Qty: 60 3RF fluticasone propionate 50 mcg/actuation spray,suspension 2 spray intranasal DAILY 360 Days Qty: 16 11RF Rx Instructions: administer into each nostril hydrochlorothiazide 25 mg tablet 25 mg PO DAILY Qty: 90 3RF alprazolam 0.5 mg tablet 0.5 mg PO BEDTIME Qty: 30 5RF allopurinol 300 mg tablet See Rx Instructions .ROUTE .COMPLEX Qty: 30 11RF Dose Instruction: TAKE 1 TABLET BY MOUTH EVERY DAY FOR GOUT Rx Instructions: TAKE 1 TABLET BY MOUTH EVERY DAY FOR GOUT diclofenac sodium 1 % gel 4 g topical QID PRN (Reason: joint pain) Qty: 200 2RF Rx Instructions: apply to affected area as needed diclofenac sodium 75 mg tablet,delayed release (DR/EC) 75 mg PO BID PRN (Reason: Pain) Qty: 60 3RF duloxetine 60 mg capsule,delayed release(DR/EC) See Rx Instructions .ROUTE .COMPLEX Qty: 30 11RF Dose Instruction: take 1 capsule BY MOUTH TWICE DAILY Rx Instructions: take 1 capsule BY MOUTH TWICE DAILY metoprolol tartrate 25 mg tablet See Rx Instructions .ROUTE .COMPLEX Qty: 60 11RF Dose Instruction: TAKE 1 TABLET BY MOUTH TWO TIMES DAILY Rx Instructions: TAKE 1 TABLET BY MOUTH TWO TIMES DAILY Rinvoq 15 mg tablet extended release 24 hr 15 mg PO DAILY Qty: 30 3RF amitriptyline 25 mg tablet See Rx Instructions .ROUTE .COMPLEX Qty: 90 2RF Dose Instruction: TAKE 3 TABLETS BY MOUTH EVERY EVENING Rx Instructions: TAKE 3 TABLETS BY MOUTH EVERY EVENING Discharge Orders: Discharge ED (Routine); Ordered 06/12/23 Ordered By: Leon Gutierrez Referrals: Rodolfo Edmonds MD [Primary Care Provider] - Discharge Diet: Usual diet Discharge Activity: Resume usual activity Patient Instructions: Opioid Safety, Pain Management Coding Level of Care Code ED Energy Conservation Engineer for Vilma Foster
== END 2023-06-12 13:13 | disposition home or self-care (01) ==
PROVIDERS: Emergency Provider Family Medicine; PCP Family Medicine
DX: L03.311 Cellulitis of abdominal wall (principal); I10 Essential (primary) hypertension
CPT/HCPCS: 99283

== ENCOUNTER → 2023-09-13 12:32 | Outpatient (BNVA) | payer OTHER, SELFPAY | PROVIDERS: PCP Family Medicine; Visit Provider Clinical Nurse Specialist Adult Health | DX: J06.9 Acute upper respiratory infection, unspecified (principal) | CPT/HCPCS: 87400; 87880 ==

== ENCOUNTER → 2023-11-07 10:50 | Outpatient (BNVA) | payer OTHER, SELFPAY | PROVIDERS: PCP Family Medicine; Visit Provider Internal Medicine Rheumatology | DX: Z79.899 Other long term (current) drug therapy (principal); Z15.89 Genetic susceptibility to other disease | CPT/HCPCS: 36415; 80076; 82565; 85025; 86140 ==

== ENCOUNTER 2023-11-25 14:25 | Outpatient (CLI) | payer OTHER, SELFPAY ==
[2023-11-25 15:27] LABS: Eosinophils % 0.5 %; Hematocrit 30.2 % (36-47); Lymphocytes # 2.2 10^3/uL (0.8-4.8); Mean Corpuscular HGB Conc 33.4 g/dL (30-55); Mean Corpuscular Hemoglobin 34.5 pg (27-33); Mean Corpuscular Volume 103.1 fl (85-98); Mean Platelet Volume 11.6 fL (7.4-10.4); Monocytes # 0.4 10^3/uL (0.2-0.9); Monocytes % 9.5 %; Neutrophils # 1.32 10^3/uL (1.8-7.7); Neutrophils % 33.2 %; Nucleated Red Blood Cells % 0 %; Platelet Count 245 10^3/cmm (157-399); Red Blood Count 2.93 10^6/uL (3.85-5.65); Red Cell Distribution Width 13.9 % (12.1-15.1); White Blood Count 3.98 10^3/uL (3.29-11.43)
== END 2023-11-25 14:26 | disposition home or self-care (01) ==
LOC: LAB 14:29
PROVIDERS: PCP Internal Medicine Rheumatology; Visit Provider Internal Medicine Rheumatology
DX: M46.90 Unspecified inflammatory spondylopathy, site unspecified (principal); Z79.899 Other long term (current) drug therapy
CPT/HCPCS: 36415; 85025

== ENCOUNTER 2023-12-23 08:08 | Outpatient (CLI) | payer OTHER, SELFPAY ==
--- NOTE | 2023-12-23 08:17 | MR_ITS ---
WS: [id number] MRI LUMBAR SPINE NONCONTRAST HISTORY: LUMBAR RADICULOPATHY COMPARISON: 03/05/2022 TECHNIQUE: Sagittal and axial multisequence imaging is submitted. Marked increase in the lumbar lordosis, similar to the prior study. L4 anterolisthesis by 2 mm. No fr actures or marrow edema. Mild desiccation of the disc spaces. Conus terminates normally at L1. L1-L2: Mild annular disc bulging with a LEFT paracentral and foraminal disc protrusion. No nerve root encroachment. Mild bilateral facet arthritis. L2-L3: Mild annular disc bulging with facet joint arthritis. Ligamentum flavum hypertrophy. Mild fora kristine stenosis. L3-L4: Mild annular disc bulging with moderate ligamentum flavum and facet arthritis. Previously desc ribed RIGHT paracentral disc protrusion has decreased in size. Mild foraminal and subarticular recess narrowing. L4-L5: Marked annular disc bulging encroaching upon the ventral thecal sac extending into the subarti cular recesses. RIGHT paracentral and proximal foraminal disc protrusion has slightly increased in si ze since the prior study. Mild disc contact on the traversing L5 nerve roots. Mild central, bilateral subarticular recess and foraminal stenosis. Additional very slight contact on the exiting a RIGHT L4 nerve root also. L5-S1: Mild annular disc bulging and facet joint arthritis. No disc protrusion identified today. IMPRESSION: 1. L4-5: Increase in size of the RIGHT paracentral and proximal foraminal disc protrusion since 03/05. There is mild disc contact on the traversing L5 nerve roots but greatest on the RIGHT. Additio nal disc contacting the exiting RIGHT L4 nerve root. Mild central, bilateral subarticular recess and foraminal stenosis. 2. LEFT paracentral and foraminal disc protrusions at L1-2. No stenosis. 3. L3-4: Mild bilateral foraminal subarticular recess encroachment. Previously described RIGHT parac entral disc protrusion has decreased in size. 4. Marked increase in the lumbar lordosis. 5. Very slight anterolisthesis of L4 is new.
--- NOTE | 2023-12-23 08:17 | MR_ITS ---
WS: [id number] MRI CERVICAL SPINE NONCONTRAST HISTORY: RADICULOPATHY, CERVICAL COMPARISON: 03/05/2022 Technique: Multiplanar, multisequence noncontrast imaging of the cervical spine. Increase in the cervical lordosis and RIGHT curvature. Signal within the cervical cord is normal. Visualized posterior fossa is unremarkable. Craniocervical junction, C1 and C2 relationship, odontoid process and soft tissues are normal. C2-C3: Mild osteophytic ridging no stenosis. C3-C4: Mild osteophytic ridging with a tiny central disc protrusion. Very mild LEFT foraminal stenosi s. C4-C5: Mild osteophytic ridging with mild facet joint arthritis. No stenosis. C5-C6: Mild annular disc bulging with a LEFT paracentral and proximal foraminal disc osteophyte. Effa cement of CSF. No displacement of the cervical cord. Mild facet arthritis and LEFT foraminal stenosis . C6-C7: Very small foraminal osteophytes. No stenosis. C7-T1: Normal. Paraspinal soft tissue are normal. IMPRESSION: 1. No significant progression of stenosis or disc disease since 03/05/2022. 2. Mild increase in cervical lordosis and RIGHT scoliosis. 3. LEFT paracentral and proximal foraminal disc protrusion at C5-6. Effacement of CSF but no high-gr nicholas stenosis. Minimal change since the prior examination.
== END 2023-12-23 08:09 | disposition home or self-care (01) ==
LOC: RAD 08:09
PROVIDERS: PCP Internal Medicine Rheumatology; Visit Provider General Practice
DX: M54.12 Radiculopathy, cervical region (principal); M25.78 Osteophyte, vertebrae; M50.322 Other cervical disc degeneration at C5-C6 level; M51.26 Other intervertebral disc displacement, lumbar region
CPT/HCPCS: 72141; 72148

== ENCOUNTER 2024-03-02 10:41 | Outpatient (CLI) | payer OTHER, SELFPAY ==
[2024-03-02 11:18] LABS: Estmated Average Glucose 105; Hemoglobin A1C 5.3 % (4.0-6.0)
[2024-03-02 11:27] LABS: Alanine Aminotransferase 15 U/L (0-33); Alkaline Phosphatase 99 U/L (35-105); Anion Gap 16.3 (5-19); Aspartate Amino Transferase 11 U/L (0-32); Blood Urea Nitrogen 26 mg/dL (8-23); Calcium 9.6 mg/dL (8.5-10.5); Carbon Dioxide 29 mmol/L (22-29); Chloride 97 mmol/L (98-107); Glomerular Filtration Rate 35.1 mL/min (90-130); Glucose 101 mg/dL (65-115); Osmolality Calculated 291 mOsm/kg (285-295); Potassium 4.3 mmol/L (3.5-5.1); Sodium 138 mmol/L (136-145); Thyroid Stimulating Hormone 2.53 uIU/mL (0.27-4.20); Total Bilirubin 0.2 mg/dL (0.15-1.2)
== END 2024-03-02 10:42 | disposition home or self-care (01) ==
LOC: LAB 10:43
PROVIDERS: PCP Family Medicine; Visit Provider Obstetrics & Gynecology
DX: Z01.419 Encounter for gynecological examination (general) (routine) without abnormal findings (principal)
CPT/HCPCS: 36415; 80053; 83036; 84443

== ENCOUNTER → 2024-03-20 10:53 | Outpatient (BNVA) | payer OTHER, SELFPAY | PROVIDERS: PCP Family Medicine; Visit Provider Internal Medicine Rheumatology | DX: M46.90 Unspecified inflammatory spondylopathy, site unspecified (principal); Z79.899 Other long term (current) drug therapy | CPT/HCPCS: 36415; 80076; 82565; 85025; 85651; 86140 ==

== ENCOUNTER 2024-03-23 10:14 | Outpatient (CLI) | payer OTHER, SELFPAY ==
--- NOTE | 2024-03-23 10:17 | MM_ITS ---
WS: [id number] BILATERAL 3D TOMOSYNTHESIS DIGITAL SCREENING MAMMOGRAPHY WITH CAD CLINICAL INFORMATION: screening HISTORY: Screening mammogram. History of breast reduction COMPARISON: 01/14/2023 TECHNIQUE: Bilateral CC and MLO views. FINDINGS: The breasts are composed of heterogeneous fibroglandular density tissue, which can limit the detectio n of small underlying mass lesions. No suspicious mass, asymmetry, calcifications, or architectural d istortion. No evidence of malignancy. A few incidental benign calcifications. MM/[place] [id number] IMPRESSION: BI-RADS: 2-Benign FOLLOW UP: 1 Year Follow-up Recommend return to annual screening mammography.
== END 2024-03-23 10:15 | disposition home or self-care (01) ==
LOC: RAD 10:14
PROVIDERS: PCP Family Medicine; Visit Provider Family Medicine
DX: Z12.31 Encounter for screening mammogram for malignant neoplasm of breast (principal); R92.323 Mammographic fibroglandular density, bilateral breasts; Z98.890 Other specified postprocedural states
CPT/HCPCS: 77063; 77067

== ENCOUNTER → 2024-05-10 09:52 | Outpatient (BNVA) | payer OTHER, SELFPAY | PROVIDERS: PCP Family Medicine; Visit Provider Family Medicine | DX: D64.9 Anemia, unspecified (principal) | CPT/HCPCS: 80503; 82607; 82728; 82746; 83010; 83550; 85025; 85045 ==

== ENCOUNTER → 2024-05-15 14:08 | Outpatient (BNVA) | payer OTHER, SELFPAY | PROVIDERS: PCP Family Medicine; Visit Provider Family Medicine | DX: D64.9 Anemia, unspecified (principal) | CPT/HCPCS: 82270 ==

== ENCOUNTER → 2024-06-14 13:42 | Outpatient (BNVA) | payer OTHER, SELFPAY | PROVIDERS: PCP Family Medicine; Visit Provider Family Medicine | DX: R10.9 Unspecified abdominal pain (principal) | CPT/HCPCS: 80053; 83690; 85025 ==

== ENCOUNTER 2024-07-19 11:57 | Outpatient (CLI) | payer OTHER, SELFPAY ==
--- NOTE | 2024-07-19 12:00 | US_ITS ---
WS: [id number] RIGHT UPPER QUADRANT ULTRASOUND HISTORY: abd pain COMPARISON: 02/08/2020 Liver: 17.9 cm in length. Mildly enlarged liver. Nodular surface of the liver. No bile duct dilatatio n. Hepatic cyst 2.2 x 1.3 x 1.4 cm. Portal Vein: Normal hepatopetal flow with monophasic waveform. Gallbladder: Cholelithiasis without acute cholecystitis. Numerous stones are present in the dependent gallbladder. CBD: 0.5 cm Pancreas: Normal size and echogenicity. Right kidney: 10.3 cm in length. Normal size and echogenicity. No hydronephrosis or mass. Aorta and IVC: Unremarkable abdominal aorta and IVC. No ascites. US/US gall bladder 06190 IMPRESSION: 1. Cholelithiasis without acute cholecystitis. Numerous gallstones are identif ied. No stones were identified on the prior study from 2019. 2. No bile duct dilatation. 3. Mild hepatomegaly and mild surface irregularity the liver suggesting cirrho sis.
== END 2024-07-19 11:58 | disposition home or self-care (01) ==
LOC: RAD 11:57
PROVIDERS: PCP Family Medicine; Visit Provider Family Medicine
DX: K80.20 Calculus of gallbladder without cholecystitis without obstruction (principal); R10.9 Unspecified abdominal pain
CPT/HCPCS: 76705

== ENCOUNTER 2024-08-08 07:09 | Day surgery (SDC) | payer OTHER, SELFPAY ==
[2024-08-08] VITALS (14 sets, daily range): BP systolic 119–170; BP diastolic 71–99; PULSE 81–99; RESP 16–19; TEMP 36.2–36.7; O2SAT 90–100; BMI 35.1
--- NOTE | 2024-08-08 07:45 | W.PM.OPSUD ---
Surgery/Procedure H&P Update DATE OF PROCEDURE: August 08, 2024 DATE H&P PERFORMED: 08/02/24 H&P UPDATE INFORMATION: I have reviewed H&P completed within last 30 days, I have examined patient prior to procedure and No changes to prior documentation PLANNED PROCEDURE: Operation Date: 08/08/24 09:00 Proposed Procedures p Laparoscopic Cholecystectomy - 14489, K80.20,R10.11(Not Applicable) - Dorian Zaragoza MD
--- NOTE | 2024-08-08 07:48 | P.ANESASSM_ITS ---
Pre-Anesthetic Assessment Height/Weight: Height 1.57 m Weight 87.09 kg Temp Pulse Resp BP Pulse Ox O2 Del Method 97.3 F L 85 19 H 170/87 93 Room Air 08/08/24 07:29 08/08/24 07:29 08/08/24 07:29 08/08/24 07:29 08/08/24 07:29 08/08/24 07:30 Operation Date: 08/08/24 09:00 Proposed Procedures p Laparoscopic Cholecystectomy - 44493, K80.20,R10.11(Not Applicable) - Dorian Zaragoza MD Familial anesthetic complications: none Was Beta María taken within 24 hours: N/A Was Clonidine taken within 24 hours: N/A Last intake: Intake Last Liquid Date 08/07/24 Last Liquid Time 18:00 Last Solid Date 08/07/24 Last Solid Time 18:00 Social No alcohol and No tobacco Exam alert, oriented x 3, clear to auscultation bilaterally and regular rate & rhythm Airway Mallampati: Class I Dentition: full Metabolic Morbid Obesity Musc/[facility] Fibromyalgia Anesthetic Plan ASA status: 3 Anesthesia: General Risk of > 500 ml blood loss (7ml/kg in children): No Medications/Allergies Home Medications Medication Instructions Recorded Confirmed Last Taken Type cholecalciferol (vitamin D3) 50 2,000 unit PO BID 12/18/19 08/07/24 08/07/24 History mcg (2,000 unit) tablet esomeprazole magnesium 20 mg 20 mg PO BID 09/28/21 08/07/24 08/07/24 History capsule,delayed release (Nexium) acetaminophen 325 mg capsule 325 mg PO QID PRN Pain 04/19/22 08/07/24 08/05/24 History (Tylenol) hydrocodone 5 mg-acetaminophen 325 1 tab PO BID PRN Pain 05/03/23 08/07/24 Unknown History mg tablet diclofenac sodium 75 mg 75 mg PO BID PRN Pain #60 tabs 01/02/24 08/07/24 Unknown Rx tablet,delayed release mupirocin 2 % topical ointment 1 applic topical BID 7 days #22 01/31/24 08/07/24 Unknown Rx grams fluticasone propionate 50 2 spray intranasal DAILY 12 months 03/19/24 08/07/24 08/06/24 Rx mcg/actuation nasal #16 grams spray,suspension diclofenac sodium 1 % topical gel 4 g topical QID PRN joint pain 03/20/24 08/07/24 Unknown Rx #200 grams alprazolam 0.5 mg tablet 0.5 mg PO BEDTIME #30 tabs 07/18/24 08/07/24 08/07/24 Rx allopurinol 300 mg tablet 300 mg PO DAILY 08/07/24 08/07/24 08/07/24 History amitriptyline 25 mg tablet 75 mg PO QPM 08/07/24 08/07/24 08/06/24 History certolizumab pegol 400 mg/2 mL 200 mg SUBCUT Q14D #1 ea 08/07/24 08/07/24 07/23/24 Rx (200 mg/mL x2) subcutaneous syringe kit (Cimzia) cyclobenzaprine 10 mg tablet 10 mg PO TID PRN muscle spasm #30 08/07/24 08/07/24 Unknown Rx tabs duloxetine 60 mg capsule,delayed 60 mg PO DAILY 08/07/24 08/07/24 08/07/24 History release hydrochlorothiazide 25 mg tablet 25 mg PO DAILY 08/07/24 08/07/24 08/07/24 History hydroxychloroquine 200 mg tablet 200 mg PO BID #180 tabs 08/07/24 08/07/24 08/07/24 Rx metoprolol tartrate 25 mg tablet 25 mg PO DAILY 08/07/24 08/08/24 08/08/24 History oxybutynin chloride 5 mg tablet 5 mg PO DAILY 08/07/24 08/07/24 08/07/24 History pregabalin 100 mg capsule (Lyrica) 100 mg PO BID #60 caps 08/07/24 08/07/24 Unknown Rx Allergies Allergy/AdvReac Type Severity Reaction Status Date / Time No Known Allergies Allergy Verified 08/07/24 09:51 [facility] Anesthesia Medical History 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 Colindres at [facility] History of suburethral sling procedure (07/22/20) Single incision suburethral sling with cystoscopy. Dx: Mixed urinary incontinence. Performed by Dr. Penny at [facility] in [place], [place]. Status post hysteroscopy (11/21/18) With D&C. DX: Postmenopausal bleeding. Performed by Dr. Penny at [facility] in [place], [place]. Findings: First-degree uterine prolapse, first to second- degree cystocele. S/P bilateral breast reduction (~03/2018) History of carpal tunnel surgery (11/15/13) Left. Performed by Dr. Diaz at [facility] in [place], [place]. H/O breast surgery (~12/2018) Family History Mother Hypertension CAD (coronary artery disease) Hyperlipidemia Breast cancer 60 Uterine cancer, Onset Age: 79 Grandfather Diabetes Maternal Family/Other Diabetes Maternal aunt Family history of thyroid problem Maternal aunt Father , AT AGE 54 Bone cancer Sister Breast cancer x2 , 52 and 50 Other Lupus (systemic lupus erythematosus) Rheumatoid arthritis Denies family history of Colon cancer Ovarian cancer Clotting disorder Anesthesia complication Bleeding disorder Social History Smoking and tobacco/nicotine status: current every day tobacco/nicotine user Substance/Drug Use: never Current occupational status: unemployed Data Anesthesia Cardiac Studies: No Data to Display
[2024-08-08] MEDS: sodium chloride 0.9% 1,000 ML 30 ML IV (07:53)
[2024-08-08] MEDS: ceFAZolin 2,000 mg SDV 2000 MG IVP (08:05)
[2024-08-08] MEDS: lidocaine-epi 1% 20 mL INJ INJECTION (09:30)
[2024-08-08] MEDS: BUPivacaine 0.25% INJ 10 mL INJECTION (09:30)
--- NOTE | 2024-08-08 09:37 | P.OP_ITS ---
Date of Procedure: 08/08/2024 Surgeon: Dr. Zaragoza Lumber Cutter(s): N/A Procedure(s) performed: Laparoscopic cholecystectomy Findings of the procedure(s): Cholelithiasis Estimated blood loss: 10 cc Specimen(s) removed: Gallbladder Post-operative diagnosis: Cholelithiasis Pathology: Gallbladder and stones sent to pathology Implant(s): None Anesthesia: General Anesthesia Complications: None Brief history/preop diagnosis: 64-year-old female who presented with symptomatic cholelithiasis. Discussed risk and benefits of laparoscopic cholecystectomy possible open and patient agreed to proceed. Full operative report: I discussed the risks and benefits of laparoscopic cholecystectomy, and obtained consent prior to proceeding to the operating room. SCDs were utilized. Prophylactic antibiotics were administered. General anesthesia was induced. A foot board was used and patient's feet were secured in place. The patient was placed supine, and he was prepped and draped in the usual sterile fashion. Insufflation to 15mmHg was achieved using a Veress needle at James's point. A 12mm optiview trocar was placed at the umbilicus under direct visualization at the site of the umbilical hernia. The left upper quadrant was inspected, and no injuries were noted. Two 5mm ports were placed in the right upper quadrant, and a 12mm working port was placed in the epigastrium. The gallbladder was then retracted cephalad through the lateral RUQ port, and the infundibulum grabbed through the medial RUQ port and retracted laterally. The gallbladder was not inflammed and thus consistent with her diagnosis of cholelithiasis. I proceeded to score the peritoneum over the medial aspect of the gallbladder using a laparoscopic hook with electrocautery. Then the infundibulum was retracted medially in order to score the peritoneum over the lateral aspect of the galbladder. Using a combination of energy and blunt dissection with the [place] and a Kittner dissector, the cystic artery and cys tic duct were dissected. I then proceeded to dissect the cystic plate in order to to achieve the critical view of safety. The cystic artery and the cystic duct were clipped three times (leaving two clips on the proximal end of both structures). I then proceeded to dissect the gallbladder off the liver using hook electrocautery. The specimen was placed in an endocatch bag and retrieved from the abdomen through the port on the epigastrium. I then irrigated the gallbladder fossa with 4L of NS to confirm adequate hemostasis and the absence of any bile leaks. The gallbladder fossa was then cauterized again. Prior to ending the laparoscopic portion, I examined the rest of the abdomen and did not find any abnormalities or injuries. The abdomen was then desufflated, and the umbilical hernia was primarily repaired using 0 vicryl on a UR needle with figure of eight. Skin was closed using 4-0 monocryl and surgical glue. The patient woke up from anesthesia and transferred to PACU without any comp lications. Condition: Stable Dispostion: Home
[2024-08-08] MEDS: fentaNYL 50 mcg/mL INJ 2mL IVP (11:02)
[2024-08-08] MEDS: ondansetron 2 mg/ML SDV 2 mL 4 MG IVP (11:02)
[2024-08-08] MEDS: oxyCODONE 5 mg IR Tab/Cap PO (11:40)
--- NOTE | 2024-08-08 11:50 | ANE.PACU2 ---
Inpatient post-anesthesia follow up: Airway intact: Yes Vital signs: Temperature 98.1 F Pulse Rate 99 Respiratory Rate 17 Blood Pressure 135/76 Pulse Oximetry 94 Oxygen Delivery Me thod Room Air Oxygen Flow Rate 8 Fraction of Inspir ed Oxygen Hydration adequate: Yes Nausea and vomiting: No Pain level: 1 Mental status: Baseline
--- NOTE | 2024-08-08 13:00 | PM.MISC ---
Miscellaneous Note Purpose of Documentation: Difficult airway Note: patient grade IV view with DL MAC 3, unable to bag mask ventilate appropriately with one provider. Glidscope 3 provided adequate but suboptimal view, Copious thick secretions throughout patient's airway. Small mouth opening. patien and family informed post-op of difficult airway
== END 2024-08-08 11:50 | disposition home or self-care (01) ==
PROVIDERS: PCP Family Medicine; Visit Provider Student in an Organized Health Care Education/Training Program
PROC: 0FT44ZZ Resection of Gallbladder, Percutaneous Endoscopic Approach (ICD-10-PCS; CPT 47562; principal; 2024-08-08 08:50)
DX: K80.10 Calculus of gallbladder with chronic cholecystitis without obstruction (principal); E66.01 Morbid (severe) obesity due to excess calories; Z68.35 Body mass index [BMI] 35.0-35.9, adult; M79.7 Fibromyalgia; I10 Essential (primary) hypertension; F17.210 Nicotine dependence, cigarettes, uncomplicated
CPT/HCPCS: 47562; 88304; J0690; J1100; J2405; J2704; J3010; J3490; J7030

== ENCOUNTER 2024-08-24 14:41 | Outpatient (CLI) | payer OTHER, SELFPAY ==
--- NOTE | 2024-08-24 15:00 | XR_ITS ---
WS: [email or web address] SCREENING DEXA SCAN [place] CLINICAL INFORMATION: M81.0 - Age-related osteoporosis without current patholog... COMPARISON: None. FINDINGS: The L1-L4 bone mineral density measures 1.261 g/cm2. This corresponds to a T score score of 0.7 and Z score of 1.4. Left femoral neck bone mineral density measures 1.120 g/cm2. This corresponds to a T score of 0.9 and Z score of 1.5. Right femoral neck bone mineral density measures 1.102 g/cm2. This corresponds to a T score 0.7of and Z score of 1.3. Mean femoral neck bone mineral density measures 1.111 g/cm2. This corresponds to a T score of 0.8 and Z score of 1.4. XR/XR DEXA axial skeleton* [id number] IMPRESSION: Normal bone mineralization lumbar spine and femoral necks. Patient's FRAX calculated 10 year probability for major osteoporotic fracture i s 8.4% and osteoporotic hip fracture is 0.4%.
== END 2024-08-24 14:42 | disposition home or self-care (01) ==
LOC: RAD 14:41
PROVIDERS: PCP Family Medicine; Visit Provider Internal Medicine Rheumatology
DX: Z13.820 Encounter for screening for osteoporosis (principal)
CPT/HCPCS: 77080

== ENCOUNTER 2024-09-17 08:50 | Outpatient (CLI) | payer OTHER, SELFPAY ==
--- NOTE | 2024-09-17 08:53 | IR_ITS ---
WS: [id number] LUMBAR MYELOGRAM HISTORY: INTERVERTEBRAL DISC DISORDERS W/RADICULOPATHY, LUMBAR COMPARISON: No similar studies. Prior MRI 12/23/2023 FLUOROSCOPY TIME: 1min [id number] # of spot films: 3 Procedure, risks and complications were explained to the patient. Risks including bleeding, infection , headaches, allergic reaction and seizures. Consent has been obtained. With the patient in prone position the skin over the lumbar region is cleansed with ChloraPrep and an esthetized with lidocaine. 22-gauge spinal needle is inserted into the thecal sac at the appropriate level determined by fluoroscopy. Omnipaque 240; 12 ml is injected slowly under fluoroscopy with no co mplications. Needle bevel is perpendicular to the longitudinal fibers of the dura. Stylet is reinsert ed prior to removal of the needle. Patient tolerated the procedure well. Patient will proceed to CT f or further evaluation. Uncomplicated injection into the subarachnoid space. CT to follow. IR/IR myelogram sp lumbar [id number] IMPRESSION: Uncomplicated lumbar myelogram performed under fluoroscopy. CT lumbar myelogram to follow.
--- NOTE | 2024-09-17 08:53 | CT_ITS ---
WS: [id number] CT MYELOGRAM LUMBAR SPINE HISTORY: INTERVERTEBRAL DISC DISORDER W/RADICULOPATHY,LUMBAR TECHNIQUE: Contiguous 2.5 mm axial imaging performed from T12 through the mid sacral level. Bone and soft tissue windows reviewed. Sagittal and coronal reformats are submitted and reviewed. DLP: 522.[address] scans at [facility] use at least one of these dose optimization techniques: automated e xposure control; mA and/or kV adjustment per patient size (includes targeted exams where dose is matc hed to clinical indication); or iterative reconstruction. COMPARISON: MRI lumbar spine 12/23/2023 Good contrast opacification of the subarachnoid space. Moderate increase in the lumbar lordosis along with mild S-shaped curvature of the lumbar spine. Slight retrolisthesis of L1 and L2. Severe degener ative disc space narrowing with vacuum disc phenomenon at L4-5 and L5-S1. No fractures. T11-12: LEFT paracentral disc protrusion. With very slight contact on the LEFT lateral thecal sac. T12-L1: Mild annular disc bulging with no stenosis. L1-L2: Diffuse annular disc bulge with a small LEFT paracentral and LEFT foraminal disc protrusion. M inimal contact on the ventral thecal sac. L2-L3: Mild annular disc bulging slightly asymmetric to the RIGHT. No significant stenosis. L3-L4: Diffuse mild annular disc bulging with mild facet and ligamentum flavum hypertrophy. Very mild encroachment upon the ventral thecal sac with no high-grade stenosis. L4-L5: Diffuse annular disc bulging with a RIGHT foraminal disc protrusion. Disc osteophyte complex i nto the RIGHT foramen. Moderate RIGHT foraminal stenosis and mild LEFT foraminal stenosis due to disc and osteophyte disease. L5-S1: Osteophytic ridging with a shallow central disc protrusion. Mild bilateral foraminal narrowing predominantly due to osteophytes. Visualized adrenal glands are normal. Normal aorta. CT/CT lumbar spine w con [id number] IMPRESSION: 1. Moderate increase in the lumbar lordosis with mild curvature. 2. L4-5: Disc bulging with a moderate RIGHT foraminal disc protrusion. RIGHT f oraminal disc osteophyte complex causing RIGHT foraminal stenosis. There is con tact on the RIGHT L4 and L5 nerve roots. Minimal LEFT foraminal stenosis. RIGHT foraminal disc protrusion is similar to the prior MRI from 12/23/2023. 3. L2-3 and L3-4: No stenosis. 4. L1-2: Shallow LEFT paracentral LEFT foraminal disc protrusion. 5. T11-T12: LEFT paracentral disc protrusion. 6. Advanced degenerative disc disease with vacuum disc phenomenon at L4-5 and L5-S1. 7. L5-S1: Mild bilateral foraminal narrowing predominant due to osteophytes.
== END 2024-09-17 08:51 | disposition home or self-care (01) ==
LOC: RAD 08:50
PROVIDERS: PCP Family Medicine; Visit Provider Physical Therapist
DX: M51.16 Intervertebral disc disorders with radiculopathy, lumbar region (principal); M40.56 Lordosis, unspecified, lumbar region; M48.061 Spinal stenosis, lumbar region without neurogenic claudication; M51.14 Intervertebral disc disorders with radiculopathy, thoracic region; M47.896 Other spondylosis, lumbar region; M47.897 Other spondylosis, lumbosacral region; M48.07 Spinal stenosis, lumbosacral region; M25.78 Osteophyte, vertebrae; M51.17 Intervertebral disc disorders with radiculopathy, lumbosacral region
CPT/HCPCS: 62304; 72132; Q9966

== ENCOUNTER 2024-11-09 10:05 | Outpatient (CLI) | payer OTHER, SELFPAY ==
[2024-11-09 10:37] LABS: Basophils # 0.1 10^3/uL (0.0-0.1); Basophils % 0.8 %; Eosinophils # 0.1 10^3/uL (0.0-0.8); Hematocrit 35.5 % (36-47); Lymphocytes # 2.4 10^3/uL (0.8-4.8); Lymphocytes % 38.7 %; Mean Corpuscular Hemoglobin 30.4 pg (27-33); Mean Corpuscular Volume 92.2 fl (85-98); Mean Platelet Volume 11.4 fL (7.4-10.4); Monocytes # 0.5 10^3/uL (0.2-0.9); Monocytes % 7.4 %; Neutrophils # 3.08 10^3/uL (1.8-7.7); Neutrophils % 50.8 %; Nucleated Red Blood Cells % 0 %; Platelet Count 228 10^3/cmm (157-399); Red Blood Count 3.85 10^6/uL (3.85-5.65); Red Cell Distribution Width 15.3 % (12.1-15.1); White Blood Count 6.07 10^3/uL (3.29-11.43)
[2024-11-09 10:49] LABS: Erythrocyte Sedimentation Rate 31 mm/hr (0-15)
[2024-11-09 10:55] LABS: Alanine Aminotransferase 13 U/L (0-33); Alkaline Phosphatase 95 U/L (35-105); Aspartate Amino Transferase 14 U/L (0-32); C Reactive Protein 6.3 mg/L (0.0-4.9); Globulin 3.1 g/dL (1.3-4.6); Glomerular Filtration Rate 72.2 mL/min (90-130); Total Bilirubin 0.2 mg/dL (0.15-1.2); Total Protein 7.1 g/dL (6.6-8.7)
== END 2024-11-09 10:06 | disposition home or self-care (01) ==
LOC: LAB 10:13
PROVIDERS: PCP Family Medicine; Visit Provider Internal Medicine Rheumatology
DX: M06.041 Rheumatoid arthritis without rheumatoid factor, right hand (principal); M06.042 Rheumatoid arthritis without rheumatoid factor, left hand; Z79.899 Other long term (current) drug therapy
CPT/HCPCS: 80076; 82565; 85025; 85651; 86140

== ENCOUNTER 2024-11-23 13:25 | Emergency (ER) | payer OTHER, SELFPAY ==
[2024-11-23 13:45] VITALS: BP 145/75; PULSE 84; RESP 18; TEMP 36.8; O2SAT 95; BMI 39.4
--- NOTE | 2024-11-23 13:49 | XR_ITS ---
WS: [email or web address] XR chest 1V portable [id number] REASON FOR EXAM: Shortness of breath FINDINGS: The chest is unchanged compared to previous examination of 04/07/2020. Significant tortuosity of the thoracic aorta. The heart is at the upper limits of normal in size. Bilateral calcified granulomatous disease. No acute pulmonary parenchymal or pleural abnormality. XR/XR chest 1V portable [id number] IMPRESSION: Stable chest without acute abnormality.
[2024-11-23 14:57] LABS: Basophils # 0.1 10^3/uL (0.0-0.1); Basophils % 0.8 %; Eosinophils # 0.3 10^3/uL (0.0-0.8); Eosinophils % 3.5 %; Hematocrit 37.6 % (36-47); Lymphocytes % 41.1 %; Mean Corpuscular HGB Conc 32.2 g/dL (30-55); Mean Corpuscular Hemoglobin 30.6 pg (27-33); Mean Corpuscular Volume 94.9 fl (85-98); Mean Platelet Volume 11.1 fL (7.4-10.4); Monocytes # 0.6 10^3/uL (0.2-0.9); Monocytes % 7.9 %; Neutrophils # 3.29 10^3/uL (1.8-7.7); Neutrophils % 45.7 %; Nucleated Red Blood Cells % 0 %; Platelet Count 244 10^3/cmm (157-399); Red Blood Count 3.96 10^6/uL (3.85-5.65); Red Cell Distribution Width 15.1 % (12.1-15.1)
[2024-11-23 14:58] LABS: Influenza A NEGATIVE (Negative); Influenza B NEGATIVE (Negative); Respiratory Syncytial Virus Ce NEGATIVE (Negative); SARS-CoV-2 PCR NEGATIVE (Negative)
[2024-11-23 15:13] LABS: Alanine Aminotransferase 13 U/L (0-33); Albumin Level 4.1 g/dL (3.5-5.2); Alkaline Phosphatase 102 U/L (35-105); Anion Gap 15.7 (5-19); Aspartate Amino Transferase 13 U/L (0-32); Blood Urea Nitrogen 13 mg/dL (8-23); Calcium 9.4 mg/dL (8.5-10.5); Carbon Dioxide 29 mmol/L (22-29); Chloride 95 mmol/L (98-107); Globulin 3.4 g/dL (1.3-4.6); Glucose 102 mg/dL (65-115); Osmolality Calculated 282 mOsm/kg (285-295); Potassium 3.7 mmol/L (3.5-5.1); Sodium 136 mmol/L (136-145); Total Bilirubin 0.2 mg/dL (0.15-1.2); Total Protein 7.5 g/dL (6.6-8.7)
--- NOTE | 2024-11-23 15:46 | ED_ITS ---
HPI - URI/Sore Throat 2 General: Chief Complaint: Upper Respiratory Infection Stated Complaint: coughing/sob Time Seen by Provider: 11/23/24 15:27 Source: patient Mode of arrival: ambulatory Limitations: no limitations History of Present Illness: Patient is a 64-year-old female who presents to ED today with a complaint of cough over the past 4 months or so as well as some hoarseness. She feels like symptoms started after a viral URI and possibly after being intubated for surgery back in July. She has seen ENT at some point before for complaint of hoarseness. Her main complaint at this time is the cough. She has tried [id number] medications without much relief. She has not seen her primary care provider for these complaints. She has no complaints of chest pain or trouble breathing. She clinically appears in no acute distress and arrives with stable vital signs. MD elicited complaint: cough Onset (ago): month(s) Consistency: constant Severity: mild Description of mucous: clear Able to tolerate fluids by mouth: Yes Exacerbating factors: nothing Relieving factors: nothing Associated symptoms: Deny abdominal pain, chills, chest pain, diarrhea, fever(s), headache(s), nausea or vomiting Treatments prior to arrival: cold medicine Related Data Home Medications ?Medication ?Instructions ?Recorded ?Confirmed cholecalciferol (vitamin D3) 50 2,000 unit PO BID 11/1908/14/24 mcg (2,000 unit) tablet esomeprazole magnesium 20 mg 20 mg PO BID 09/28/21 capsule,delayed release (Nexium) acetaminophen 325 mg capsule 325 mg PO QID PRN Pain 08/14/24 (Tylenol) hydrocodone 5 mg-acetaminophen 325 1 tab PO BID PRN Pa in 05/03/23 08/14/24 mg tablet allopurinol 300 mg tablet 300 mg PO DAILY 08/07/24 hydrochlorothiazide 25 mg tablet 25 mg PO DAILY 08/14/24 metoprolol tartrate 25 mg tablet 25 mg PO DAILY 08/14/24 oxybutynin chloride 5 mg tablet 5 mg PO DAILY 08/07/24 08/14/24 Previous Rx's ?Medication ?Instructions ?Recorded diclofenac sodium 75 mg 75 mg PO BID PRN Pain #60 ta bs 01/02/24 tablet,delayed release mupirocin 2 % topical ointment 1 applic topical BID 7 days #22 01/31/24 grams fluticasone propionate 50 2 spray intranasal DAILY 12 months 03/19/24 mcg/actuation nasal #16 grams spray,suspension diclofenac sodium 1 % topical gel 4 g topical QID PRN joint pain 03/20/24 #200 grams alprazolam 0.5 mg tablet 0.5 mg PO BEDTIME #30 tabs 1 certolizumab pegol 400 mg/2 mL 200 mg SUBCUT Q14D #1 e a 08/07/24 (200 mg/mL x2) subcutaneous syringe kit (Cimzia) cyclobenzaprine 10 mg tablet 10 mg PO TID PRN muscle s pasm #30 08/07/24 tabs hydroxychloroquine 200 mg tablet 200 mg PO BID #180 ta bs 08/07/24 pregabalin 100 mg capsule (Lyrica) 100 mg PO BID #60 c aps 08/07/24 amitriptyline 25 mg tablet See Rx Instructions .Route 11/12/24 .COMPLEX #90 tabs duloxetine 60 mg capsule,delayed See Rx Instructions . Route 11/12/24 release .COMPLEX #30 caps benzonatate 100 mg capsule 100 mg PO TID PRN cough #20 caps 11/23/24 Allergies Allergy/AdvReac Type Severity Reaction Status Date / Time No Known Allergies Allergy Verified 11/23/24 13:51 Review of Systems 2 Const: Denies: fever(s), chills, body aches, fatigue or malaise ENMT: Reports: hoarseness; Denies: throat pain or odynophagia Card: Denies: chest pain or palpitations Resp: Reports: non-productive cough; Denies: wheezing or hemoptysis GI: Denies: abdominal pain, nausea, vomiting or diarrhea Musc: Denies: neck pain, back pain, extremity pain, joint swelling or joint redness Skin/Breast: Denies: rash Neuro: Denies: headache(s) PFSH ED 2 PFSH: Medical History 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 Colindres at [facility] History of suburethral sling procedure (07/22/20) Single incision suburethral sling with cystoscopy. Dx: Mixed urinary incontinence. Performed by Dr. Penny at [facility] [place] in [place], [place]. Status post hysteroscopy (11/21/18) With D&C. DX: Postmenopausal bleeding. Performed by Dr. Penny at [facility] [place] in [place], [place]. Findings: First-degree uterine prolapse, first to second- degree cystocele. S/P bilateral breast reduction (~03/2018) History of carpal tunnel surgery (11/15/13) Left. Performed by Dr. Diaz at [facility] [place] in [place], [place]. H/O breast surgery (~12/2018) Family History Mother Hypertension CAD (coronary artery disease) Hyperlipidemia Breast cancer 60 Uterine cancer, Onset Age: 79 Grandfather Diabetes Maternal Family/Other Diabetes Maternal aunt Family history of thyroid problem Maternal aunt Father , AT AGE 54 Bone cancer Sister Breast cancer x2 , 52 and 50 Other Lupus (systemic lupus erythematosus) Rheumatoid arthritis Denies family history of Colon cancer Ovarian cancer Clotting disorder Anesthesia complication Bleeding disorder Social History Smoking and tobacco/nicotine status: never used tobacco/nicotine Substance/Drug Use: never Current occupational status: unemployed Physical Exam 2 Const: COMMON NORMALS: no acute distress, no limitations, alert and well nourished GENERAL APPEARANCE: cooperative NUTRITIONAL APPEARANCE: obese ORIENTATION/CONSCIOUSNESS: Yes awake, Yes oriented to person, Yes oriented to place and Yes oriented to time HENMT: THROAT: posterior oropharynx normal and tonsils normal Neck/C-Spine: GENERAL: Yes normal visual inspection, No anterior neck swelling and No submandibular swelling Chest: COMMONS NORMALS: normal inspection of the chest and normal palpation of entire chest wall Resp: COMMON NORMALS: normal respiratory effort and clear to auscultation bilaterally AUSCULTATION: clear to auscultation bilaterally Cardio: COMMON NORMALS: regular rate and regular rhythm RATE: regular rate RHYTHM: regular rhythm Neuro: SENSORIUM/ORIENTATION: Yes alert, Yes oriented to person, Yes oriented to place and Yes oriented to time Course 2 Vital Signs: Vital signs: Vital Signs Temperature 98.2 F 11/23/24 13:45 Pulse Rate 81 11/23/24 16:52 Respiratory Rate 18 11/23/24 13:45 Blood Pressure 144/76 11/23/24 16:52 Pulse Oximetry 95 11/23/24 16:52 Oxygen Delivery Me thod Room Air 11/23/24 13:45 MDM - URI/Sore Throat Medical Decision Making Patient has no acute complaints today. She clinically appears no acute distress with stable vital signs. Her blood work here overall is unremarkable. CXR is stable without acute abnormalities. She will be encouraged to follow-up with her primary care provider. Medical Records I reviewed the patient's medical records. Lab Data I reviewed the patient's lab results. 11/23/24 14:44 11/23/24 14:44 Radiology Impressions Chest X-Ray 11/23/24 13:49 IMPRESSION: Stable chest without acute abnormality. Laboratory Results WBC 7.20 10^3/uL (3.29-11.43) 11/23/24 14:44 RBC 3.96 10^6/uL (3.85-5.65) 11/23/24 14:44 Hgb 12.10 g/dL (11.27-16.99) 11/23/24 14:44 Hct 37.6 % (36-47) 11/23/24 14:44 MCV 94.9 fl (85-98) 11/23/24 14:44 MCH 30.6 pg (27-33) 11/23/24 14:44 MCHC 32.2 g/dL (30-55) 11/23/24 14:44 RDW 15.1 % (12.1-15.1) 11/23/24 14:44 Plt Count 244 10^3/cmm (157-399) 11/23/24 14:44 MPV 11.1 fL (7.4-10.4) H 11/23/24 14:44 Neut % (Auto) 45.7 % 11/23/24 14:44 Lymph % (Auto) 41.1 % 11/23/24 14:44 Sullivan % (Auto) 7.9 % 11/23/24 14:44 Eos % (Auto) 3.5 % 11/23/24 14:44 Baso % (Auto) 0.8 % 11/23/24 14:44 Neut # (Auto) 3.29 10^3/uL (1.8-7.7) 11/23/24 14:44 Lymph # (Auto) 3.0 10^3/uL (0.8-4.8) 11/23/24 14:44 Sullivan # (Auto) 0.6 10^3/uL (0.2-0.9) 11/23/24 14:44 Eos # (Auto) 0.3 10^3/uL (0.0-0.8) 11/23/24 14:44 Baso # (Auto) 0.1 10^3/uL (0.0-0.1) 11/23/24 14:44 Nucleated RBC % (auto) 0 % 11/23/24 14:44 Nucleated RBCs # 0.0 /100WBC 11/23/24 14:44 Sodium 136 mmol/L (136-145) 11/23/24 14:44 Potassium 3.7 mmol/L (3.5-5.1) 11/23/24 14:44 Chloride 95 mmol/L (98-107) L 11/23/24 14:44 Carbon Dioxide 29 mmol/L (22-29) 11/23/24 14:44 Anion Gap 15.7 (5-19) 11/23/24 14:44 BUN 13 mg/dL (8-23) 11/23/24 14:44 Creatinine 0.9 mg/dL (0.5-0.9) 11/23/24 14:44 GFR Calculation 63.0 mL/min (90-130) L 11/23/24 14:44 Glucose 102 mg/dL (65-115) 11/23/24 14:44 Calculated Osmolality 282 mOsm/kg (285-295) L 11/23/24 14:44 Calcium 9.4 mg/dL (8.5-10.5) 11/23/24 14:44 Total Bilirubin 0.2 mg/dL (0.15-1.2) 11/23/24 14:44 AST 13 U/L (0-32) 11/23/24 14:44 ALT 13 U/L (0-33) 11/23/24 14:44 Alkaline Phosphatase 102 U/L (35-105) 11/23/24 14:44 Total Protein 7.5 g/dL (6.6-8.7) 11/23/24 14:44 Albumin 4.1 g/dL (3.5-5.2) 11/23/24 14:44 Globulin 3.4 g/dL (1.3-4.6) 11/23/24 14:44 Influenza A (PCR) Negative (Negative) 11/23/24 13:58 Influenza Type B (PCR) Negative (Negative) 11/23/24 13:58 RSV (PCR) Negative (Negative) 11/23/24 13:58 SARS-CoV-2 (PCR) Negative (Negative) 11/23/24 13:58 All radiology interpretation(s) finalized by discharge Discharge Plan Discharge Patient Disposition: Home Clinical Impression: Chronic cough Condition: Stable Prescriptions: New benzonatate 100 mg capsule 100 mg PO TID PRN (Reason: cough) Qty: 20 0RF Rx Instructions: Can take 1-2 tabs up to TID. Max 600mg/day. No Action cholecalciferol (vitamin D3) 2,000 unit tablet 2,000 unit PO BID esomeprazole magnesium [Nexium] 20 mg capsule,delayed release(DR/EC) 20 mg PO BID acetaminophen [Tylenol] 325 mg capsule 325 mg PO QID PRN (Reason: Pain) mupirocin 2 % ointment 1 applic topical BID 7 Days Qty: 22 0RF Cimzia 400 mg/2 mL (200 mg/mL x 2) syringe kit 200 mg SUBCUT Q14D Qty: 1 5RF cyclobenzaprine 10 mg tablet 10 mg PO TID PRN (Reason: muscle spasm) Qty: 30 0RF Rx Instructions: take for 10 days and call hydroxychloroquine 200 mg tablet 200 mg PO BID Qty: 180 1RF pregabalin [Lyrica] 100 mg capsule 100 mg PO BID Qty: 60 5RF hydrocodone-acetaminophen 5-325 mg tablet 1 tab PO BID PRN (Reason: Pain) diclofenac sodium 1 % gel 4 g topical QID PRN (Reason: joint pain) Qty: 200 2RF Rx Instructions: apply to affected area as needed diclofenac sodium 75 mg tablet,delayed release (DR/EC) 75 mg PO BID PRN (Reason: Pain) Qty: 60 3RF fluticasone propionate 50 mcg/actuation spray,suspension 2 spray intranasal DAILY 360 Days Qty: 16 11RF Rx Instructions: administer into each nostril alprazolam 0.5 mg tablet 0.5 mg PO BEDTIME Qty: 30 5RF amitriptyline 25 mg tablet See Rx Instructions .ROUTE .COMPLEX Qty: 90 2RF Dose Instruction: TAKE 3 TABLETS BY MOUTH EVERY EVENING Rx Instructions: TAKE 3 TABLETS BY MOUTH EVERY EVENING duloxetine 60 mg capsule,delayed release(DR/EC) See Rx Instructions .ROUTE .COMPLEX Qty: 30 11RF Dose Instruction: take 1 capsule BY MOUTH TWICE DAILY Rx Instructions: take 1 capsule BY MOUTH TWICE DAILY allopurinol 300 mg tablet 300 mg PO DAILY Rx Instructions: TAKE 1 TABLET BY MOUTH EVERY DAY FOR GOUT hydrochlorothiazide 25 mg tablet 25 mg PO DAILY Rx Instructions: TAKE ONE TABLET BY MOUTH EVERY DAY oxybutynin chloride 5 mg tablet 5 mg PO DAILY Rx Instructions: TAKE ONE TABLET BY MOUTH EVERY DAY metoprolol tartrate 25 mg tablet 25 mg PO DAILY Rx Instructions: TAKE 1 TABLET BY MOUTH TWO TIMES DAILY Discharge Orders: Discharge ED (Routine); Ordered 11/23/24 Ordered By: Daphne Lopez Referrals: Rodolfo Edmonds MD [Primary Care Provider] - Activity Restrictions/Additional Instructions: As we discussed, your emergency department workup here was unremarkable. Please follow-up with Dr. Edmonds for further evaluation of your chronic cough and your hoarseness. Print Language: Lithuanian Coding Level of Care Code ED Psychologist [employer] Organ[employer]ational for Vilma Foster
[2024-11-23 16:52] VITALS: BP 144/76; PULSE 81; O2SAT 95
== END 2024-11-23 16:53 | disposition home or self-care (01) ==
PROVIDERS: Emergency Medicine; Emergency Provider Physician Assistant; PCP Family Medicine
DX: R05.9 Cough, unspecified (principal); Z11.52 Encounter for screening for COVID-19; I10 Essential (primary) hypertension
CPT/HCPCS: 36415; 71045; 80053; 85025; 87637; 99284

== ENCOUNTER 2025-02-08 08:36 | Outpatient (CLI) | payer OTHER, SELFPAY ==
--- NOTE | 2025-02-08 08:43 | FL_ITS ---
WS: [email or web address] Barium swallow and esophagram, 02/08/2025 Clinical Data: DYSPHAGIA Comparison: None. Fluoroscopy time: 1min [phone] # of spot films: 27 Findings: The patient swallowed the thick and thin barium, and it flowed through the hypopharynx without hesitation. No stricture, mass, polyp or erosion was seen. No aspiration or penetration occurred. The barium entered the esophagus and there was poor motility throughout. Tertiary contractions occurred. There was a small sliding hiatal hernia with moderate reflux. No polyp, mass, erosion, ulceration or fistula was seen. The barium passed normally into the stomach. FL/FL barium swallow [id number] Impression: 1. Tertiary contractions. 2. Small sliding hiatal hernia with moderate reflux.
== END 2025-02-08 08:37 | disposition home or self-care (01) ==
PROVIDERS: PCP Family Medicine; Visit Provider Specialist
DX: M54.2 Cervicalgia (principal); K22.4 Dyskinesia of esophagus; K44.9 Diaphragmatic hernia without obstruction or gangrene
CPT/HCPCS: 74220

== ENCOUNTER 2025-02-15 10:34 | Outpatient (CLI) | payer OTHER, SELFPAY ==
--- NOTE | 2025-02-15 10:45 | CTR_ITS ---
PROCEDURE INFORMATION: Exam: CT Neck With Contrast Exam date and time: 02/15/2025 12:03 PM Age: 64 years old Clinical indication: Throat pain, hoarseness; Additional info: Cervicalgia TECHNIQUE: Imaging protocol: Computed tomography of the neck with contrast. Radiation optimization: All CT scans at this facility use at least one of these dose optimization techniques: automated exposure control; mA and/or kV adjustment per patient size (includes targeted exams where dose is matched to clinical indication); or iterative reconstruction. Contrast material: OMNI 350; Contrast volume: 80 ml; Contrast route: INTRAVENOUS (IV); COMPARISON: CT neck w con* [id number] 02/05/2023 6:21 PM RADIATION DOSE METRICS: Total DLP (mGy-cm): 320.89 FINDINGS: Paranasal sinuses: Mucosal thickening with opacification of right maxillary antrum. Heterogeneous density likely indicates chronic secretions. Salivary glands: Normal. Glands are normal in size. Pharynx: Slight swelling of the left lingual tonsil with effacement of the left glossotonsillar sulcus. No abscess. Larynx: Unremarkable. Epiglottis is normal. Thyroid: Normal. No enlarged or calcified nodules. Trachea: Visualized trachea is unremarkable. Lungs: Unremarkable as visualized. Lymph nodes: Unremarkable. No lymphadenopathy. Bones/joints: Unremarkable. No acute fracture. Soft tissues: Unremarkable. No significant soft tissue swelling. CT/CT neck w con* [id number] IMPRESSION: 1. Slight swelling of the left lingual tonsil with effacement of the left glossotonsillar sulcus. No abscess. Findings consistent with moderate changes of pharyngitis. 2. Mucosal thickening with opacification of right maxillary antrum. Heterogeneous density likely indicates chronic secretions.
[2025-02-15] MEDS: iohexol 350 mg/mL 500 mL Btl (per mL) IV (12:22)
[2025-02-15 13:43] LABS: Blood Urea Nitrogen 13 mg/dL (8-23); Glomerular Filtration Rate 55.8 mL/min (90-130)
== END 2025-02-15 10:35 | disposition home or self-care (01) ==
PROVIDERS: PCP Family Medicine; Visit Provider Specialist
DX: M54.2 Cervicalgia (principal); R93.89 Abnormal findings on diagnostic imaging of other specified body structures; J32.0 Chronic maxillary sinusitis
CPT/HCPCS: 70491; 82565; 84520

== ENCOUNTER 2025-03-12 08:44 | Outpatient (CLI) | payer OTHER, SELFPAY ==
--- NOTE | 2025-03-12 08:49 | FL_ITS ---
WS: [email or web address] Exam: FL barium swallow modifd [id number] Date/Time of Exam: 03/12/2025 9:03 AM Reason For Exam: Other dysphagia Fluoroscopy time: 6min [id number] minutes # of spot films: 0 Modified barium swallow test was performed in conjunction with the speech therapy service. Oropharyngeal phase of swallowing was normal. The patient tolerated all consistencies of barium mixture foodstuffs without penetration or aspiration. The patient did have some difficulty swallowing the barium tablet which was retained in the lower esophagus due to esophageal hypomotility. The tablet was propelled in the stomach with additional swallows of pudding mixture barium foodstuffs. FL/FL barium swallow modifd [id number] IMPRESSION: 1. No aspiration or penetration observed. 2. The patient experienced some difficulty swallowing a barium tablet with some hypomotility of the esophagus. See above discussion. A separate report with findings and recommendations will follow from the speech therapy service.
== END 2025-03-12 08:45 | disposition home or self-care (01) ==
PROVIDERS: PCP Family Medicine; Visit Provider Specialist
DX: R13.19 Other dysphagia (principal)
CPT/HCPCS: 74230; 92611

== ENCOUNTER → 2025-03-26 11:42 | Outpatient (BNVA) | payer OTHER, SELFPAY | PROVIDERS: PCP Family Medicine; Visit Provider Internal Medicine Rheumatology | DX: Z79.899 Other long term (current) drug therapy (principal) | CPT/HCPCS: 36415; 80076; 82565; 85025; 85651; 86140; 86480; 86704; 86803; 87340 ==

== ENCOUNTER 2025-03-29 08:21 | Outpatient (CLI) | payer OTHER, SELFPAY ==
--- NOTE | 2025-03-29 08:33 | MR_ITS ---
WS: [id number] MRI LUMBAR SPINE NONCONTRAST TECHNIQUE: Sagittal T1, T2 and STIR imaging. Axial T1 and T2 imaging. CLINICAL INFORMATION: INTERVERTEBRAL DISC DISORDERS W/RADICULOPATHY, LSPINE REGION COMPARISON: MRI 2023 FINDINGS: Lumbar scoliosis. No acute compression. Slight anterolisthesis L4 on L5. No high-grade central canal stenosis. L1-L2: Mild annular bulging. Slight narrowing LEFT subarticular recess. Moderate facet arthropathy. Mild LEFT foraminal narrowing. L2-L3: Mild annular bulging. Slight narrowing of the subarticular recess bilaterally. Moderate facet arthropathy. Foramen are patent. L3-L4: Mild annular bulging. Moderate facet arthropathy. Slight effacement of the ventral thecal sac. Mild LEFT foraminal narrowing. L4-L5: Slight anterolisthesis. Mild disc bulging with slight impingement on the subarticular recess bilaterally. Mild RIGHT foraminal narrowing. LEFT foramen is patent. Moderate facet arthropathy and ligamentum flavum hypertrophy. L5-S1: Mild disc bulging with slight effacement of the ventral thecal sac. Moderate facet arthropathy. Eccentric disc bulging with mild LEFT foraminal narrowing. RIGHT foramen is patent. Visualized pelvic bony structures: Normal. Paravertebral soft tissues: Normal. Adrenal glands appear normal. MR/MR lumbar spine wo con* [id number] IMPRESSION: 1. Mild lumbar curve. No acute compression. No high-grade central canal stenos is. 2. Slight anterolisthesis L4 on L5. Disc desiccation at this level has slightl y progressed with mild disc bulging and slight narrowing of the subarticular re cess bilaterally. This encroaches on the traversing L5 nerve roots. 3. Mild annular bulging L3-4 with mild central canal stenosis and slight narro wing of the subarticular recess with encroachment on the traversing L4 nerve ro ots. 4. Disc bulging L1-2 with slight impingement on the LEFT greater than RIGHT neri barticular recess. Mild LEFT L1-2 foraminal narrowing appears stable compared t o previous. 5. Moderate facet arthropathy L3-L5. 6. Mild LEFT L3-4 and mild RIGHT L4-5 foraminal narrowing 7. No other significant interval changes.
== END 2025-03-29 08:22 | disposition home or self-care (01) ==
LOC: RAD 08:25
PROVIDERS: PCP Family Medicine; Visit Provider Physical Therapist
DX: M51.16 Intervertebral disc disorders with radiculopathy, lumbar region (principal); M51.369 Other intervertebral disc degeneration, lumbar region without mention of lumbar back pain or lower extremity pain; M48.062 Spinal stenosis, lumbar region with neurogenic claudication
CPT/HCPCS: 72148

== ENCOUNTER 2025-04-26 10:43 | Outpatient (CLI) | payer OTHER, SELFPAY ==
--- NOTE | 2025-04-26 | MM_ITS ---
WS: [email or web address] BILATERAL 3D TOMOSYNTHESIS DIGITAL SCREENING MAMMOGRAPHY WITH CAD CLINICAL INFORMATION: ANNUAL SCREENING HISTORY: Screening mammogram. No current complaints. History of breast reduction COMPARISON: 2023 TECHNIQUE: Bilateral CC and MLO views. FINDINGS: The breasts are composed of heterogeneous fibroglandular density tissue, which can limit the detection of small underlying mass lesions. No suspicious mass, asymmetry, calcifications, or architectural distortion. No evidence of malignancy. Incidental punctate calcifications LEFT greater than RIGHT breast. Parenchymal changes of breast reduction. MM/MM [facility] tomosynthesis [id number] IMPRESSION: DENSITY: The breasts are heterogeneously dense, which may obscure small masses. BI-RADS: 2 - Benign FOLLOW UP: 1 Year Follow-up Recommend return to annual screening mammography.
== END 2025-04-26 10:44 | disposition home or self-care (01) ==
LOC: RAD 10:43
PROVIDERS: PCP Family Medicine; Visit Provider Family Medicine
DX: Z12.31 Encounter for screening mammogram for malignant neoplasm of breast (principal)
CPT/HCPCS: 77063; 77067

== ENCOUNTER → 2025-07-04 16:26 | Outpatient (BNVA) | payer OTHER, SELFPAY | PROVIDERS: PCP Family Medicine; Visit Provider Nurse Practitioner Women's Health | DX: Z01.419 Encounter for gynecological examination (general) (routine) without abnormal findings (principal) | CPT/HCPCS: 82306; 84443 ==

== ENCOUNTER → 2025-08-13 14:37 | Outpatient (BNVA) | payer OTHER, SELFPAY | PROVIDERS: PCP Family Medicine; Visit Provider Internal Medicine Rheumatology | DX: Z79.899 Other long term (current) drug therapy (principal); M06.041 Rheumatoid arthritis without rheumatoid factor, right hand; M06.042 Rheumatoid arthritis without rheumatoid factor, left hand | CPT/HCPCS: 80076; 82565; 85025; 85651; 86140 ==

== ENCOUNTER 2025-08-23 16:27 | Outpatient (CLI) | payer OTHER, SELFPAY ==
--- NOTE | 2025-08-23 17:00 | USCV_ITS ---
Jody Nash Age: 65 Gender: F : 1960 Exam Date: 08/23/2025 16:46 Ordering Phys: Ben Gates MD Technologist: MARYANN [place]am Location[place] [facility] [place]ication: rt calf pain HISTORY: Lower extremity pain. PROCEDURES: Venous duplex imaging was performed in only the right lower extremity. The following venous structures were evaluated: common femoral vein, profunda vein, proximal portion of the greater saphenous vein, superficial femoral vein, and the popliteal vein. In addition, the posterior tibial and peroneal trunk were evaluated. FINDINGS: Normal 2-D Doppler and augmentation and compressibility throughout the lower extremity venous structures. Additional imaging through the proximal calf veins also reveals no thrombus. Limited evaluation of the greater saphenous vein is patent with no thrombus. CONCLUSIONS No evidence of right lower extremity DVT. Sukhdev Guzman MD (Electronically Signed) Final Date: 23 August 2025 17:37 S
== END 2025-08-23 16:28 | disposition home or self-care (01) ==
LOC: RAD 16:27
PROVIDERS: PCP Family Medicine; Visit Provider Internal Medicine Rheumatology
DX: M79.661 Pain in right lower leg (principal)
CPT/HCPCS: 93971